=== PATIENT | female | born 1935 | race Caucasian/White ===

== ENCOUNTER 2023-05-07 04:54 | Inpatient (IN) | payer MEDICARE, OTHER, SELFPAY ==
[2023-05-07] VITALS (15 sets, daily range): BP systolic 129–172; BP diastolic 55–82; PULSE 77; O2SAT 97
--- NOTE | 2023-05-07 00:37 | ED.GENMED ---
History of Present Illness
General
Chief Complaint: Fever
Source: patient and ambulance crew
Exam Limitations: none
Time Seen by Provider: 05/07/23 00:35
Nursing documentation reviewed up to this point in time: agreed with
Travel History
Have you had any contact with someone who has COVID-19?: No
Do you have any symptoms of coronavirus? Fever > 100 degrees, chills, cough, shortness of breath, sore throat, loss of taste or smell, muscle aches, or headache?: No
History of Present Illness
History of Present Illness:
Pleasant 87-year-old female presents from [facility] due to a fever of 101. According to daughter Carmela, who is now present at the bedside, she went to visit mom at [facility]. Patient went to bed around 8 PM after taking her evening
medications. Daughter stayed in the room for a while. Patient awakened a short time after going to sleep, patient awakened calling out for her . Daughter went into the room and noticed that patient had a blank stare and was weak. She felt
warm to the touch and temperature was measured at 101.7. Patient complains of a sore throat. Denies any other complaints at this time.
Past History
Past History
ED Past Medical History: CAD, Cancer (Cervical), HTN, Hypercholesterolemia, Valvular disease and Other (R ureteral obstruction, peripheral vascular disease)
ED Past Surgical History: Other (Breast lumpectomy, sentinel in the leg, nephrostomy, cataract surgery)
Patient has exhibited threatening behavior?: No
Social History
Tobacco: Non-smoker
Alcohol: None
Drug: None
Personal:
Living: with family
Employment: Retired
Family History
Family History: Other (Noncontributory)
Review of Systems
Review of Systems
Allergies reviewed?: Yes
Other source history: family
All Other Systems: Not applicable
Neurological: Reports weakness
Psychiatric: Reports anxiety
Phy Exam
General Physical Exam
General Presentation: well appearing and mild distress
General Skin: warm and dry
General Habitus: elderly and frail
General Mental: alert
General Hydration: appears well hydrated
ENT Exam
ENT Exam: EOMI, pharynx normal, neck supple and normocephalic
Eye Exam
Eye Exam: PERRL, cornea clear and conjunctiva normal
Cardiovascular Exam
Cardiovascular Exam: regular rate/rhythm, no edema, no murmur and normal peripheral pulses
Pulmonary Exam
Pulmonary Exam: lungs clear, no respiratory distress, no rales, no crackles, no rhonchi, no stridor, no wheezing and no cough
Gastrointestinal Exam
Gastrointestinal Exam: normal bowel sounds, non tender, soft, no organomegaly, no pulsatile mass and non distended
Neurological Exam
Neurological Exam: alert, oriented x3, no motor deficits and speech normal
Musculoskeletal Exam
Musculoskeletal Exam: full ROM and no edema
Skin Exam
Skin Exam: normal color, warm/dry, no rash and no petechia
Psychiatric Exam
Psychiatric Exam: normal mood/affect
Course
Orders/Labs/Results
Orders:
Orders
05/07/23 00:30
Electrocardiogram (*1) Urgent
Reason for Study: Other
Other Reason for Exam: Possible Sepsis
Cardiac Monitoring- Treatment ONCE
EKG- Treatment ONCE
IV Insert/Care/Rem.- Treatment PRN
O2 Therapy [RESP] Urgent
Titrate/Wean O2 to maintain O2 sat greater than (%): 93
Special Instructions: TO MAINTAIN CONTINUOUS O2 SATS > OR = 93%
Pulse Ox/cont/shift [RESP] Urgent
Quantity: 1
Special Instructions: CONTINUOUS
05/07/23 00:39
COVID-19 Antigen Urgent
Source: Nasal Swab
Complete Blood Count/With Diff Urgent
Comprehensive Metabolic Panel Urgent
Lactic Acid Q4H
Comment: ON ICE, CANCEL 2ND ORDER IF FIRST LACTIC ACID LEVEL <2
Blood Culture Q30M
JACKIE Source: Blood/Venous
Specimen Description:
Comment: FROM 2 SEPARATE SITES
Influenza A+B Rapid Molecular Urgent
JACKIE Source: Nasal Swab
Specimen Description:
Rapid Strep Group A Urgent
JACKIE Source: Throat/Pharynx
Specimen Description:
Date Specimen was Collected: 05/07/23
Time Specimen was Collected: 00:37
Throat Culture [Throat Culture, Comprehensive] Urgent
JACKIE Source: Throat/Pharynx
Specimen Description:
Date Specimen was Collected: 05/07/23
Time Specimen was Collected: 00:37
05/07/23 01:00
Blood Culture Q30M
JACKIE Source: Blood/Venous
Specimen Description:
Comment: FROM 2 SEPARATE SITES
05/07/23 01:54
0.9% Sodium Chloride 1000 ml [Nss] 1,000 ml IV BOLUS
05/07/23 02:53
Osmolality, Random Urine Urgent
Date Specimen was Collected: 05/07/23
Time Specimen was Collected: 02:44
Urinalysis Reflex To Culture Urgent
Date Specimen was Collected: 05/07/23
Time Specimen was Collected: 02:44
Urine Microscopic Reflex Cult Urgent
Urine Sodium Urgent
Date Specimen was Collected: 05/07/23
Time Specimen was Collected: 02:44
Comment: ADD ON
05/07/23 03:19
Add On- LAB Urgent
Tests Added?: Urine Na, Urine Osm
05/07/23 03:21
CXR2 [CR Chest - 2 Views ] Urgent
Comment:
Reason For Exam: Fever
05/07/23 03:59
ECG [Electrocardiogram (*1)] Urgent
Reason for Study: Tachycardia
EKG- Treatment ONCE
05/07/23 04:37
Admit/Transfer Patient As Directed
Co-Sign Provider:
Level of Care: Inpatient admission
Assign to:: Telemetry
Physician / Group: Olayinka
Diagnosis: Altered Mental Status, Fever
Reason for Telemetry: Arrhythmia
Date to Stop Telemetry: 05/10/23
Time to Stop Telemetry: 11:00
Reason for Hospitalization: Altered Mental Status, Fever
Expected length of stay greater than two midnights?: Yes
ELOS- Estimated Length of Stay in days: 3
I certify the patient meets the requirements for IP care: Yes
05/07/23 04:41
Code Status As Directed
Resuscitation Status: Do not resuscitate
Reached after discussion with pt or family/Healthcare POA: Yes
05/07/23 04:44
DNR Bracelet Application ONCE
05/07/23 05:48
Cortisol, Random IN AM
0.9% Sodium Chloride 1000 ml [Nss] 1,000 ml IV 80 mls/hr
Acetaminophen [Tylenol] 650 mg PO Q4HPRN PRN
Albuterol Nebs [Ventolin Nebules] 2.5 mg INH R Q4HPRN PRN
05/07/23 05:48
TSH Reflex To Free T4 Routine
Activity As Directed
Activity Level: Ambulate
With Assistance
Bladder Scan As Directed
Follow Bladder Retention/Intermittent Cath Algorithm?: Yes
PRN if no void in __ hours: 6
Frequency: Per Retention Algorithm
If Bladder Scan Result >: 400
then:: Straight cath
I/O [Intake/ Output] As Directed
Frequency: Per unit guidelines
Neurological Checks As Directed
Frequency: q4h
Orthostatic Vital Signs As Directed
Orthostatic VS Frequency: BID
Pneumatic Compression Sleeves As Directed
Type: Knee high
Straight Cath As Directed
Frequency: Per Retention Algorithm
Additional Instructions: straight cath as needed per acute urinary retention algorithm for 24 hrs
Additional Instructions: for bladder scan greater than 400 mL
Vital Signs As Directed
Frequency: Per unit guidelines
Weight As Directed
Frequency: Daily
Oxygen Therapy [O2 Therapy] [RESP] Routine
Titrate/Wean O2 to maintain O2 sat greater than (%): 94
Rx Incentive Spirometry [RESP] Routine
Frequency: q1h while awake
Ot Eval And Treat Routine
PT Consult [Pt Eval And Treat] Routine
Activity Level: Ambulate
With Assistance
DX Deep Vein Thrombosis Video Routine
05/07/23 Breakfast
Clear Liquid
Basic Metabolic Panel IN AM
Complete Blood Count/No Diff IN AM
CefTRIAXone [Rocephin] 1,000 mg IV Q24H
Doxycycline Hyclate [Vibramycin] 100 mg 0.9% Sodium Chloride 250 ml [Nss] 250 ml IV Q12H
05/07/23 07:00
Levothyroxine [Synthroid] 100 mcg PO DAILY AT 0700
05/07/23 08:00
Atorvastatin [Lipitor] 10 mg PO DAILY
Losartan [Cozaar] 50 mg PO DAILY
Pantoprazole [Protonix] 40 mg PO DAILY
progesterone micronized [Prometrium] 100 mg PO DAILY
05/07/23 13:00
Pramipexole [Mirapex] 0.125 mg PO DAILY@1300
05/07/23 22:00
Sertraline HCl [Zoloft] 25 mg PO HS
05/10/23 11:00
DC Protocol for Telemetry ONCE
05/13/23 08:00
estradiol 1 patch TOPICAL SA
Abnormal Lab Results
05/07/23 05/07/23
00:39 02:53
RBC 3.38 L 10^6/uL
(4.20-5.40)
Hgb 10.2 L g/dL
(12.0-16.0)
Hct 29.1 L %
(37.0-47.0)
Absolute Lymphs (auto) 0.4 L 10^3/uL
(1.2-3.4)
Absolute Monos (auto) 0.7 H 10^3/uL
(0.1-0.6)
Neutrophils % 77.5 H %
(42.2-75.2)
Lymphocytes % 6.0 L %
(20.5-51.1)
Monocytes % 12.1 H %
(1.7-9.3)
Sodium 128 L mmol/L
(135-145)
Chloride 96 L mmol/L
(98-107)
Glucose 101 H mg/dl
(70-99)
Lactic Acid 0.6 L mmol/L
(0.7-2.0)
Total Protein 5.3 L g/dl
(6.3-8.2)
Albumin 3.0 L g/dl
(3.5-5.0)
Urine Ketones Trace A
(Negative)
Leukocyte Esterase Rfl Trace A
(Negative)
Urine Osmolality 209 L mOsm/kg
(300-900)
05/07/23 00:39
05/07/23 00:39
Vital Signs
Initial and Last Documented VS:
Initial Vital Signs
Temp Pulse Resp Pulse Ox
99.1 F 102 19 100
05/07/23 00:32 05/07/23 00:32 05/07/23 00:32 05/07/23 00:32
Last Documented Vital Signs
Temp Pulse Resp BP Pulse Ox
98.1 F 92 16 150/73 96
05/07/23 05:57 05/07/23 05:57 05/07/23 05:57 05/07/23 05:57 05/07/23 06:29
*Critical Care Note
Total Time (30-74mins, 75-104mins- exclusive of procedures): Not Applicable
Update Note
Update Note:
Daughter concerned that mom is too weak. She was unable to ambulate easily to the bathroom she has lives at [facility]. She is a DNR. Daughter is okay with some interventions such as fluids and antibiotics if necessary. Patient does not feel
safe going home. Daughter is concerned that she may fall
ED Attending Note
-
Portions of this chart may have been created with voice recognition software.� Occasional wrong word or��sound alike� substitutions may have occurred due to the inherent limitations of voice recognition software.
Discharge Plan
Departure
Patient Disposition: Admit
Date of Disposition: 05/07/23
Time of Disposition: :57
Admit to: Med/Surg
Presentation/result/management discussed w/ accepting MD/DO: Hospitalist
Discharge Problem:
Acute hyponatremia, Weakness, Ambulatory dysfunction
Interventions
Interventions:
*Risk Screen - Suicide Last Done: 05/07/23 06:05
*General Assessment Last Done: 05/07/23 00:32
*Neglect/Abuse Screening Last Done: 05/07/23 00:32
ED- Fall Risk Assessment Last Done: 05/07/23 00:44
*ED COVID-19 Vaccine History Last Done: 05/07/23 06:05
*Nursing Disposition Last Done: 05/07/23 05:43
ED- Neurological Assessment Last Done: 05/07/23 00:44
ED-Skin Assessment Last Done: 05/07/23 00:44
Discharge Date and Time
Discharge Date/Time: 05/07/23 05:44
[2023-05-07 00:53] LABS: % Basophils 0.8 % (0-2); % Eosinophils 3.1 % (0-6); % Immature Granulocytes 0.5 % (0-0.5); % Monocytes 12.1 % (1.7-9.3); % Neutrophils 77.5 % (42.2-75.2); Absolute Basophils 0.1 10^3/uL (0-0.2); Absolute Eosinophils 0.2 10^3/uL (0-0.7); Absolute Lymphocytes 0.4 10^3/uL (1.2-3.4); Absolute Monocytes 0.7 10^3/uL (0.1-0.6); Absolute Neutrophils 4.8 10^3/uL (1.4-6.5); Hematocrit 29.1 % (37.0-47.0); Hemoglobin 10.2 g/dL (12.0-16.0); Mean Corp Hgb Conc. 35.1 g/dL (33.0-37.0); Mean Corpuscular Hgb 30.2 pg (27.0-31.0); Mean Corpuscular Volume 86.1 fL (81.0-99.0); Mean Platelet Volume 8.3 fL (7.4-10.4); Nucleated Red Blood Cells % 0 %; Platelet Count 195 10^3/uL (130-400); Red Blood Cell Count 3.38 10^6/uL (4.20-5.40); Red Cell Dist. Width 14.5 % (11.5-14.5); White Blood Cell Count 6.1 10^3/uL (4.8-10.8)
[2023-05-07 01:18] LABS: ALT (SGPT) 16 U/L (0-35); AST (SGOT) 19 U/L (14-36); Alkaline Phosphatase 69 U/L (38-126); Blood Urea Nitrogen 9 mg/dl (7-17); Calcium 8.7 mg/dl (8.4-10.2); Carbon Dioxide 25 mmol/L (22-30); Chloride 96 mmol/L (98-107); Glucose 101 mg/dl (70-99); Potassium 3.8 mmol/L (3.5-5.1); Sodium 128 mmol/L (135-145); Total Bilirubin 0.5 mg/dl (0.2-1.3); Total Protein 5.3 g/dl (6.3-8.2); eGFR > 60.00
[2023-05-07 01:25] LABS: COVID-19 Antigen Negative (Negative)
[2023-05-07 01:50] LABS: Lactic Acid 0.6 mmol/L (0.7-2.0)
[2023-05-07] MEDS: NSS 1000 IV ×2 (01:54→08:17)
[2023-05-07 03:14] LABS: Urine Albumin Negative (Neg - Trace); Urine Bilirubin Negative (Negative); Urine Character Clear (Clear); Urine Color Straw; Urine Glucose Negative (Negative); Urine Ketone Trace (Negative); Urine Leukocyte Trace (Negative); Urine Nitrite Negative (Negative); Urine Occult Blood Negative (Negative); Urine Specific Gravity 1.005 (<1.030); Urine Urobilinogen Negative (Neg - 1+)
[2023-05-07 03:36] LABS: Urine Red Blood Cell None Seen /HPF (0-2); Urine White Cell 0-2 /HPF (0-5)
[2023-05-07 03:48] LABS: Urine Sodium 61 mmol/L (30-90)
[2023-05-07 03:51] LABS: Osmolality Urine 209 mOsm/kg (300-900)
--- NOTE | 2023-05-07 04:45 | HPS.HSE ---
Family Physician
-
Family Physician: Jarret Lyles
Chief Complaint
-
Altered Mental Status / Fever
History of Present Illness
Patient is an 87y F with PMH significant for hypertension, mild dementia and RLS who presents to ED for evaluation of altered mental status. History obtained from family at the bedside with minimal input from patient. Daughter at bedside notes
that patient has had a very complicated past few weeks. On 04/05/23, patient suffered a fall with head injury and SDH. She was hospitalized at [facility] in [place]. Her SDH resolved within 2 weeks and no intervention / surgery was necessary.
She moved to [facility] about 2 1/2 weeks ago with her . She has seemed somewhat depressed and has had decreased appetite / PO intake since that time.
Patient has had persistent headaches, nausea, general fatigue and vision changes - attributed to post-concussion syndrome from her fall.
She was placed on Compazine for symptoms control, but developed marked worsening of her chronic restless leg syndrome.
Compazine was discontinued (according to daughter - though it is still present as a standing order on her MAR from [facility]).
Patient was then started on alprazolam 0.25mg QID [id number] - beginning on 05/05/23.
Patient has complained for the past few days of hacking, non-productive cough and sore throat. She has had repeated negative COVID and Flu tests (including here in the ED this evening).
This evening, patient called her family and seemed confused. She seemed restless in bed and yet very weak. She started to slide out of the bed and her daughter went to support her and noted that she was 'burning up'.
Her vitals at that time included at temperature of 101.7 and patient was sent to the ED for further evaluation.
In the ED, patient seems very fatigued. She is sleeping comfortably, but will open her eyes to verbal and noxious stim. She answers questions briefly and will follow commands, but then falls quickly back to sleep.
Medical History
Past Medical History
Past Medical History: Reports Other
Additional Past Medical History:
Metastatic Cervical Cancer - In Remission s/p chemo, XRT and brachytherapy
Hypertension
Hypothyroidism
Chronic Hyponatremia
Anxiety / Depression
Restless Leg Syndrome
ASCVD (Carotid Disease, PAD)
SDH (04/05/2023)
Right Breast Cancer
Past Surgical History: Reports Other
Additional Past Surgical History:
LLE Stent
Right Rotator Cuff Repair
Right Lumpectomy
D&C
Cataracts
R ACW Port
Right PCN
Social History
Tobacco: Former Smoker (Quit many years ago.)
Alcohol: Occasional
Drug: None
Living: Assisted Living
Family History
Family History: Not pertinent
Allergies / Home Medications
Allergies reflects when Allergies were last updated in [facility].
Home Medications with original date entered in [facility]
Allergy/Medication List:
Allergies
Allergy/AdvReac Type Severity Reaction Status Date / Time
acetaminophen [From Percocet] Allergy 'mild Verified 05/07/23 00:31
sensation
of bug
bites'
ciprofloxacin [From Cipro] Allergy malaise; Verified 05/07/23 00:31
tolerates
levaquin
clarithromycin [From Biaxin] Allergy vision loss Verified 05/07/23 00:31
ondansetron [From Zofran] Allergy intense Verified 05/07/23 00:31
restless
leg
syndrome
oxycodone [From Percocet] Allergy 'mild Verified 05/07/23 00:31
sensation
of bug
bites'
sulfamethoxazole Allergy Rash Verified 05/07/23 00:31
[From Bactrim]
trimethoprim [From Bactrim] Allergy Rash Verified 05/07/23 00:31
Home Medications
levothyroxine 100 mcg tablet 100 mcg PO DAILY AT 0700 Thyroid 06/28/19
atorvastatin 10 mg tablet 10 mg PO DAILY High cholesterol 08/04/19
mirabegron 50 mg tablet,extended release 24 hr (Myrbetriq) 50 mg PO HS Urinary Issue 11/09/22
sertraline 25 mg tablet (Zoloft) 25 mg PO HS Depression 11/09/22
estradiol 0.025 mg/24 hr weekly transdermal patch 1 patch topical SA Hormonal Agent 12/15/22
Bifidobacterium infantis 4 mg capsule (Align) 4 mg PO DAILY 05/07/23
acetaminophen 325 mg capsule (Tylenol) 650 mg PO QID PRN pain 05/07/23
alpha lipoic acid 600 mg tablet 600 mg PO DAILY 05/07/23
alprazolam 0.25 mg tablet (Xanax) 0.25 mg PO QID 05/07/23
cetirizine 10 mg tablet (Zyrtec) 10 mg PO DAILY PRN seasonal allergies 05/07/23
cranberry extract 200 mg capsule (Ellura) 200 mg PO DAILY 05/07/23
cyanocobalamin (vitamin B-12) 2,500 mcg sublingual tablet (Vitamin B-12) 2,500 mcg sublingual DAILY 05/07/23
fluticasone propionate 50 mcg/actuation nasal spray,suspension 1 spray intranasal BID PRN rhinorrhea 05/07/23
fluticasone propionate 50 mcg/actuation nasal spray,suspension 1 spray intranasal DAILY 05/07/23
guaifenesin 600 mg tablet, extended release 12 hr (Mucinex) 600 mg PO Q12H PRN congestion 05/07/23
hyoscyamine sulfate 0.125 mg sublingual tablet (Levsin/SL) 0.25 mg PO QID PRN secretions 05/07/23
losartan 50 mg tablet 50 mg PO DAILY 05/07/23
melatonin 3 mg capsule 3 mg PO HS 05/07/23
methylcellulose (laxative) 500 mg tablet (Citrucel) 500 mg PO BID 05/07/23
nifedipine 60 mg tablet,extended release 24 hr 60 mg PO DAILY 05/07/23
nitrofurantoin macrocrystal 50 mg capsule (Macrodantin) 50 mg PO HS 05/07/23
oxymetazoline 0.05 % nasal spray (Afrin (oxymetazoline)) 1 spray intranasal ONCE 05/07/23
pantoprazole 40 mg tablet,delayed release (Protonix) 40 mg PO DAILY 05/07/23
peg 400-propylene glycol 0.4 %-0.3 % eye drops (Systane (propylene glycol)) 1 drp ophthalmic (eye) TID PRN dry eyes 05/07/23
phosphorated carbohydrate oral solution (Emetrol oral solution) 15 ml PO PRN nausea 05/07/23
pramipexole 0.125 mg tablet 0.125 mg PO BID@1300,1800 05/07/23
progesterone micronized 100 mg capsule (Prometrium) 100 mg PO DAILY 05/07/23
riboflavin (vitamin B2) 100 mg tablet (Vitamin B-2) 100 mg PO DAILY 05/07/23
simethicone 125 mg capsule 125 mg PO BID PRN gas pains 05/07/23
Review of Systems
-
History Source: Patient
A 12 point ROS was completed and negative except as noted: Yes
Constitutional: Reports Fatigue; Denies Fever
EENT: Reports Sore Throat
Respiratory: Reports Cough; Denies Hemoptysis or Trouble Breathing
Cardiac: Denies Chest Pain or Palpitations
Abdomen/GI: Reports Nausea and Anorexia; Denies Abdominal Pain, Vomiting or Diarrhea
: Denies Dysuria, Frequency or Flank Pain
Musculoskeletal: Denies Joint Pain or Edema
Neurological: Reports Weakness; Denies Dizzy or Headache
Physical Exam
Vital Signs
Vital Signs
Temp Pulse Resp BP Pulse Ox
99.1 F 99 23 141/61 94
05/07/23 00:32 05/07/23 03:45 05/07/23 03:45 05/07/23 03:00 05/07/23 03:41
Physical Exam
General: Other (87y F in no acute distress. Responds to verbal and noxious stimuli, but falls quickly back to sleep.)
HEENT: Other (Very dry MM. No significant erythema, purulence, white coating, etc.)
Respiratory: Other (Few coarse breath sounds appreciated on the R. Generally poor inspiratory effort. No rales / wheezes.)
Cardiac: S1/S2 and Regular Rhythm; No Murmur
GI: Soft, Non Tender, Non Distended and Normal Bowel Sounds
Musculoskeletal: No Clubbing, No Cyanosis and No Edema
Laboratory Results
-
05/07/23 00:39
05/07/23 00:39
Laboratory Results
Lactic Acid 0.6 mmol/L (0.7-2.0) L 05/07/23:39
Total Bilirubin 0.5 mg/dl (0.2-1.3) 05/07/23 00:39
AST 19 U/L (14-36) 05/07/23:39
ALT 16 U/L (0-35) 05/07/23 00:39
Alkaline Phosphatase 69 U/L (38-126) 05/07/23 00:39
Impression/Plan
-
A/P: Patient is an 87y F with PMH significant for ASCVD, HTN, anxiety and recent SDH who presents to ED for evaluation of altered mental status, fever and sore throat.
Altered Mental Status
- Admit for further evaluation and treatment.
- Suspect that change in mentation is multifactorial, but likely in large part due to recently started ATC alprazolam.
- Hold sedating medications and follow for improvement in mental status.
- Treat other concurrent issues as noted below.
R Pneumonia
Acute Hypoxemic Respiratory Insufficiency secondary to the above.
- Patient with recent sore throat, cough and fever at home today to 101.7.
- CXR with patchy increased density on the R to my read.
- O2 levels in the ED as low as 92%.
- Cover with IV abx for CAP for now.
- Supportive care including O2, nebs, etc.
- Follow for clinical improvement.
- COVID / Influenza negative in the ED today.
Acute on Chronic Hyponatremia
- Very minimal progression of hyponatremia from baseline around 130 to current value of 128.
- Poor PO intake, very dry MM and weight loss per family.
- Gentle IVFs overnight.
- Follow for changes in Na levels.
- Encourage PO intake and adjust fluid restrictions / IVFs / etc as needed to maintain Na level.
- Check TFTs and cortisol for completeness.
Recent SDH
Post-Concussion Syndrome
- Fall on 04/05/23 with resultant L frontal SDH - improved / resolved without intervention.
- Family reports significant change in mentation, functional status, mood, etc since that fall.
- Follow for any new / worsening symptom.
- Consider repeat CT if any acute changes.
- PT / OT evaluations.
Restless Leg Syndrome
Akathisia
- Recent worsening of RLS symptoms following Compazine administration.
- Then started on standing doses of alprazolam as noted above.
- Hold further Compazine or alprazolam.
- Continue usual pramipexole for RLS symptoms.
- Follow for any new / worsening symptoms.
ASCVD
- History of carotid disease and PAD s/p stenting.
- No chest pain, etc at present.
- Follow for any new complaints.
Hypothyroidism
- Stable. Continue T4 supplementation.
- Update TFTs as noted above.
Metastatic Cervical Cancer
- s/p chemo, XRT and brachytherapy.
- Continue current hormonal medication regimen.
DVT Prophylaxis: SCDs given recent SDH
Code Status: DNR
[2023-05-07] MEDS: VIBRAMYCIN 260 MG IV (08:20)
--- NOTE | 2023-05-07 08:21 | VATNOTE ---
Attempted to draw blood from port, unable to achieve blood return. Patient repositioned and port flushed multiple times, still unable to withdraw blood. Phlebotomy notified about need to draw AM labs. Will discuss possible CathFlo with attending MD.
[2023-05-07] MEDS: STERILE WATER FOR INJECTION 10 ML IV (08:23)
[2023-05-07] MEDS: ROCEPHIN 1000 MG IV (08:24)
[2023-05-07] MEDS: SYNTHROID 100 MCG PO (08:25)
[2023-05-07] MEDS: LIPITOR 10 MG PO (08:25)
[2023-05-07] MEDS: PROTONIX 40 MG PO (08:25)
[2023-05-07] MEDS: COZAAR 50 MG PO (08:26)
[2023-05-07 09:05] LABS: Hematocrit 30.3 % (37.0-47.0); Hemoglobin 10.5 g/dL (12.0-16.0); Mean Corp Hgb Conc. 34.7 g/dL (33.0-37.0); Mean Corpuscular Hgb 29.9 pg (27.0-31.0); Mean Corpuscular Volume 86.3 fL (81.0-99.0); Mean Platelet Volume 8.3 fL (7.4-10.4); Platelet Count 215 10^3/uL (130-400); Red Blood Cell Count 3.51 10^6/uL (4.20-5.40); Red Cell Dist. Width 14.6 % (11.5-14.5); White Blood Cell Count 5.6 10^3/uL (4.8-10.8)
[2023-05-07 09:26] LABS: Blood Urea Nitrogen 6 mg/dl (7-17); Calcium 8.4 mg/dl (8.4-10.2); Carbon Dioxide 25 mmol/L (22-30); Chloride 101 mmol/L (98-107); Estimated Creatinine Clearance 57 ml/min; Glucose 89 mg/dl (70-99); Potassium 3.9 mmol/L (3.5-5.1); Sodium 129 mmol/L (135-145); eGFR > 60.00
--- NOTE | 2023-05-07 09:46 | W.PN.UPDATE ---
Update Note
Progress Note Update
Seen and examined
Nonbillable note
Fever episode -monitor for developing sepsis. Patient currently on Rocephin and doxycycline for suspected pneumonia, official chest x-ray read negative for infection. Rule out bacteremia -of note blood culture every 30 minutes x2 ordered in ER
although only 1 set was collected and patient already got on antibiotics at this point. Repeat blood culture if spikes fever.
Recent fall and left subdural hematoma -patient very pleasant and coherent, no indication of repeat brain imaging today.
Sore throat -COVID/flu/rapid strep test negative. Throat culture pending. Already on Rocephin and doxycycline. Cepacol lozenges ordered
[2023-05-07] MEDS: CATHFLO/ACTIVASE 2 MG IV (09:55)
[2023-05-07 10:13] LABS: Cortisol, Random 9.7 ug/dl; TSH Reflex To Free T4 0.31 uIU/ml (0.47-4.68)
[2023-05-07 10:42] LABS: Free T4 2.41 ng/dl (0.78-2.19)
--- NOTE | 2023-05-07 11:02 | VATNOTE ---
CathFlo given per protocol/order. Port with brisk blood return at this time. PCN updated.
[2023-05-07] MEDS: MIRAPEX 0.125 MG PO (14:04)
--- NOTE | 2023-05-07 14:24 | CM ---
Patient seen at bedside. Patient recently moved to [facility] assisted living with her per chart review. Patient confirmed that but did not remember if she had any VN or supports at [facility]. Patient indicated that they used the [facility] on
[facility] and that her PCP is Dr. Lyles. Patient has a walker and wheelchair. Patient pleasant and with no complaints at this time. CM will call to [facility] and leave a message for Melinda Liaison at [facility] to ask for update
about patient status at facility. CM will continue to follow for discharge planning needs.
Plan; return to personal care, watch for home VN/PT needs vs SNF
[2023-05-07] MEDS: TYLENOL 650 MG PO ×2 (16:53→20:53)
[2023-05-07] MEDS: PROCARDIA XL (EXTENDED RELEASE) 60 MG PO (16:53)
[2023-05-07] MEDS: APRESOLINE 10 MG IV (16:54)
--- NOTE | 2023-05-07 18:36 | PTCARENOTE ---
Spoke with daughter Carmela to update her on plan of care. Daughter emotional about Pt being in the hospital and stating ' I can't care for her the way I could before'. Daughter informed that Pharmacy inquiring about family bringing in Prometrium and
Estradiol, daughter stated she would not be bringing them in and that Pt can resume them once returning back to [facility]. Pharmacy updated about meds.
[2023-05-07] MEDS: VIBRAMYCIN 100 MG PO (20:33)
[2023-05-07] MEDS: MELATONIN 3 MG PO (21:20)
[2023-05-07] MEDS: ZOLOFT 25 MG PO (22:50)
[2023-05-08] MEDS: NSS 1000 IV ×2 (01:40→14:31)
[2023-05-08 03:50] VITALS: BP 139/63
[2023-05-08] MEDS: STERILE WATER FOR INJECTION 10 ML IV (05:35)
[2023-05-08] MEDS: ROCEPHIN 1000 MG IV (05:35)
[2023-05-08 05:42] LABS: Hematocrit 34.9 % (37.0-47.0); Hemoglobin 11.7 g/dL (12.0-16.0); Mean Corp Hgb Conc. 33.5 g/dL (33.0-37.0); Mean Corpuscular Hgb 29.9 pg (27.0-31.0); Mean Corpuscular Volume 89.3 fL (81.0-99.0); Mean Platelet Volume 8.4 fL (7.4-10.4); Platelet Count 258 10^3/uL (130-400); Red Blood Cell Count 3.91 10^6/uL (4.20-5.40); Red Cell Dist. Width 14.5 % (11.5-14.5); White Blood Cell Count 5.2 10^3/uL (4.8-10.8)
[2023-05-08 05:44] VITALS: BMI 19.3
[2023-05-08 06:09] LABS: Blood Urea Nitrogen 5 mg/dl (7-17); Calcium 9.1 mg/dl (8.4-10.2); Carbon Dioxide 25 mmol/L (22-30); Chloride 101 mmol/L (98-107); Estimated Creatinine Clearance 55 ml/min; Glucose 92 mg/dl (70-99); Potassium 3.9 mmol/L (3.5-5.1); Sodium 133 mmol/L (135-145); eGFR > 60.00
[2023-05-08] MEDS: SYNTHROID 100 MCG PO (06:24)
[2023-05-08 07:30] VITALS: BP 142/78
[2023-05-08] MEDS: VIBRAMYCIN 100 MG PO (08:31)
[2023-05-08] MEDS: PROTONIX 40 MG PO (08:31)
[2023-05-08] MEDS: COZAAR 50 MG PO (08:32)
[2023-05-08] MEDS: LIPITOR 10 MG PO (08:32)
--- NOTE | 2023-05-08 10:49 | W.PN.HOSP.TC ---
Today's Communication/Plan
-
Monitor vital signs and see plan
Updated daughter over the phone
Discharge planning
Discontinue antibiotics
Check C. difficile, stool studies
Decrease Synthroid
Assessment / Plan
Assessment / Plan
General: Other (87y F in no acute distress.� Responds to verbal and noxious stimuli, but falls quickly back to sleep.)
HEENT: Other (Very dry MM.� No significant erythema, purulence, white coating, etc.)
Respiratory: Other (Few coarse breath sounds appreciated on the R.� Generally poor inspiratory effort.� No rales / wheezes.)
Cardiac: S1/S2 and Regular Rhythm; No Murmur
GI: Soft, Non Tender, Non Distended and Normal Bowel Sounds
Musculoskeletal: No Clubbing, No Cyanosis and No Edema
Altered Mental Status
�- Suspect that change in mentation is multifactorial, but likely in large part due to recently started ATC alprazolam.
�- Hold sedating medications and follow for improvement in mental status.
�- Treat other concurrent issues as noted below.
R Pneumonia
Acute Hypoxemic Respiratory Insufficiency on admission; no clear cause; now appears on RA
�- Patient with recent sore throat, cough and fever at home today to 101.7. her has been normal temp
CXR does not appear PNA
�- DC abx and monitor
bcx NGTD
�- Supportive care including O2, nebs, etc.
�- COVID / Influenza negative
Acute on Chronic Hyponatremia
�- Very minimal progression of hyponatremia from baseline around 130
�- Poor PO intake, very dry MM and weight loss per family.
�- Gentle IVFs
�- Follow for changes in Na levels.
�- Encourage PO intake and adjust fluid restrictions / IVFs / etc as needed to maintain Na level.
Recent SDH
Post-Concussion Syndrome
�- Fall on 04/05/23 with resultant L frontal SDH - improved / resolved without intervention.
�- Family reports significant change in mentation, functional status, mood, etc since that fall.
�- Follow for any new / worsening symptom.
�- Consider repeat CT if any acute changes.
�- PT / OT evaluations.
Restless Leg Syndrome
Akathisia
�- Recent worsening of RLS symptoms following Compazine administration.
�- Then started on standing doses of alprazolam as noted above.
�- Hold further Compazine or alprazolam.
�- Continue usual pramipexole for RLS symptoms.
�- Follow for any new / worsening symptoms.
Suspected depressive mood
no SI
psych eval outpatient
ASCVD
�- History of carotid disease and PAD s/p stenting.
�- No chest pain, etc at present.
�- Follow for any new complaints.
Hypothyroidism
�- Continue T4 supplementation.
�- dec syntrhoid to 88mcg; repeat levels in 4 weeks outpatient
Metastatic Cervical Cancer
�- s/p chemo, XRT and brachytherapy.
�- Continue current hormonal medication regimen.
DVT Prophylaxis:� SCDs given recent SDH
Code Status:� DNR
Anticipated Discharge: Within 24 hours
Subjective/Interval History
-
Date of Service: May 08, 2023
denies pain
Objective Data
-
Labs:
Laboratory Results
05/08/23
05:36
WBC 5.2
Hgb 11.7 L
Hct 34.9 L
Plt Count 258
Sodium 133 L
Potassium 3.9
Chloride 101
Carbon Dioxide 25
BUN 5 L
Creatinine 0.5 L
Glucose 92
Calcium 9.1
Vital Signs:
Vital Signs
Temp Pulse Resp BP Pulse Ox
98.3 F 87 16 142/78 95
05/08/23 07:30 05/08/23 07:30 05/08/23 07:30 05/08/23 07:30 05/08/23 07:30
I&O
05/07/23 05/08/23 05/09/23
06:59 06:59 06:59
Intake Total 600 / 840 240 / 240
Balance 600 / 840 240 / 240
[2023-05-08] MEDS: TYLENOL 650 MG PO ×2 (10:57→22:18)
--- NOTE | 2023-05-08 11:37 | CM ---
Addendum entered by SILVANA Hampton 05/08/23 13:46:
Received return call from patient's daughter who stated that her preference is for patient to return to her [facility] with her spouse if at all possible as she does better living with her spouse and she has been doing well.
Reviewed indication on behalf of PT is rehab, however patient's daughter stated that as patient is not feeling very well, she is probably doing worse than she will once she starts getting better.
CM stated that PT/OT can be reviewed again and final determinations won't be made until prior to discharge. If indication is still for SNF tomorrow, will get referrals from patient's .
Original Note:
Spoke with attending who stated that patient's daughter wanted to discuss discharge planning. Placed a call to patient's daughter who answered but stated that she was at an appointment. She was agreeable to a call in an hour. Will f/u.
Plan: Case management will continue to follow and assist with discharge planning. Most likely SNF.
[2023-05-08 11:45] VITALS: BP 146/73
[2023-05-08] MEDS: MIRAPEX 0.125 MG PO (12:15)
[2023-05-08 15:00] VITALS: BP 159/65
[2023-05-08] MEDS: PROCARDIA XL (EXTENDED RELEASE) 60 MG PO (17:29)
[2023-05-08 19:00] VITALS: BP 147/63
[2023-05-08] MEDS: ZOLOFT 25 MG PO (22:18)
[2023-05-08 23:00] VITALS: BP 149/77
[2023-05-09] VITALS (8 sets, daily range): BP systolic 130–173; BP diastolic 65–97; BMI 19.1
[2023-05-09] MEDS: TYLENOL 650 MG PO ×3 (02:23→21:38)
[2023-05-09] MEDS: SYNTHROID 88 MCG PO (06:22)
[2023-05-09] MEDS: COZAAR 50 MG PO (07:43)
[2023-05-09] MEDS: PROTONIX 40 MG PO (07:43)
[2023-05-09] MEDS: LIPITOR 10 MG PO (07:43)
[2023-05-09 08:34] LABS: % Basophils 0.6 % (0-2); % Eosinophils 3.2 % (0-6); % Immature Granulocytes 0.6 % (0-0.5); % Lymphocytes 6.7 % (20.5-51.1); % Monocytes 9.3 % (1.7-9.3); % Neutrophils 79.6 % (42.2-75.2); Absolute Eosinophils 0.2 10^3/uL (0-0.7); Absolute Lymphocytes 0.4 10^3/uL (1.2-3.4); Absolute Monocytes 0.5 10^3/uL (0.1-0.6); Absolute Neutrophils 4.3 10^3/uL (1.4-6.5); Hematocrit 33.9 % (37.0-47.0); Hemoglobin 11.5 g/dL (12.0-16.0); Mean Corp Hgb Conc. 33.9 g/dL (33.0-37.0); Mean Corpuscular Hgb 29.8 pg (27.0-31.0); Mean Corpuscular Volume 87.8 fL (81.0-99.0); Mean Platelet Volume 8.4 fL (7.4-10.4); Nucleated Red Blood Cells % 0 %; Platelet Count 237 10^3/uL (130-400); Red Blood Cell Count 3.86 10^6/uL (4.20-5.40); Red Cell Dist. Width 14.5 % (11.5-14.5); White Blood Cell Count 5.4 10^3/uL (4.8-10.8)
[2023-05-09 09:38] LABS: Blood Urea Nitrogen 5 mg/dl (7-17); Calcium 8.7 mg/dl (8.4-10.2); Carbon Dioxide 23 mmol/L (22-30); Chloride 100 mmol/L (98-107); Estimated Creatinine Clearance 55 ml/min; Glucose 87 mg/dl (70-99); Potassium 3.3 mmol/L (3.5-5.1); Sodium 129 mmol/L (135-145); eGFR > 60.00
--- NOTE | 2023-05-09 10:19 | CM ---
Received another call form patient's daughter, reiterating that she would rather, if possible, have patient return back to her apartment. She was advised that CM will need to review her current functional status with [facility] to confirm that
they can accept her.
Plan: Case management will continue to follow and assist with discharge planning. Patient's daughter hopeful that patient can just return right back to [facility] with her spouse.
--- NOTE | 2023-05-09 11:00 | W.PN.HOSP.TC ---
Addendum entered and electronically signed by Shyam Bullock MD 05/10/23 12:05:
underweight
Suspect toxic metabolic encephalopathy which is now improved
Original Note:
Today's Communication/Plan
-
Monitor vital signs and see plan
Spoke with daughter 05/08. Patient is currently at assisted living. Daughter wants to see how patient does today and depending on that she will decide on disposition
Replete potassium
Monitor sodium
Assessment / Plan
Assessment / Plan
General: Other (87y F in no acute distress.)
HEENT: no icterus
Respiratory: Other (Few coarse breath sounds appreciated on the R.� Generally poor inspiratory effort.� No rales / wheezes.)
Cardiac: S1/S2 and Regular Rhythm; No Murmur
GI: Soft, Non Tender, Non Distended and Normal Bowel Sounds
Musculoskeletal: No Clubbing, No Cyanosis and No Edema
Altered Mental Status
now improving
�- Suspect that change in mentation is multifactorial, but likely in large part due to recently started ATC alprazolam.
�- Hold sedating medications and follow for improvement in mental status.
�- Treat other concurrent issues as noted below.
R Pneumonia
Acute Hypoxemic Respiratory Insufficiency on admission; no clear cause; now appears on RA
�- Patient with recent sore throat, cough and fever at home today to 101.7. her has been normal temp
CXR does not appear PNA
�- DC abx and monitor
bcx NGTD
�- Supportive care including O2, nebs, etc.
�- COVID / Influenza negative
Acute diarrhea likely related to abx
cdiff neg; no WBC in stool
hypokalemia
Replete
Acute on Chronic Hyponatremia
�- Very minimal progression of hyponatremia from baseline around 130
�- Poor PO intake, very dry MM and weight loss per family.
Recent SDH
Post-Concussion Syndrome
�- Fall on 04/05/23 with resultant L frontal SDH - improved / resolved without intervention.
�- Family reports significant change in mentation, functional status, mood, etc since that fall.
�- Follow for any new / worsening symptom.
�- Consider repeat CT if any acute changes.
�- PT / OT evaluations rec SNF. Spoke with daughter 05/08. Patient is currently at assisted living. Daughter wants to see how patient does today and depending on that she will decide on disposition
Restless Leg Syndrome
Akathisia
�- Recent worsening of RLS symptoms following Compazine administration.
�- Then started on standing doses of alprazolam as noted above.
�- Hold further Compazine or alprazolam.
�- Continue usual pramipexole for RLS symptoms.
�- Follow for any new / worsening symptoms.
Suspected depressive mood
no SI
psych eval outpatient
ASCVD
�- History of carotid disease and PAD s/p stenting.
�- No chest pain, etc at present.
�- Follow for any new complaints.
Hypothyroidism
�- Continue T4 supplementation.
�- dec Synthroid to 88mcg; repeat levels in 4 weeks outpatient
Metastatic Cervical Cancer
�- s/p chemo, XRT and brachytherapy.
�- Continue current hormonal medication regimen.
DVT Prophylaxis:� SCDs given recent SDH
Code Status:� DNR
Spoke with daughter 2/. Patient is currently at assisted living. Daughter wants to see how patient does today and depending on that she will decide on disposition
Anticipated Discharge: Today
Subjective/Interval History
-
Date of Service: May 09, 2023
denies pain
Objective Data
-
Labs:
Laboratory Results
05/09/23
08:15
WBC 5.4
Hgb 11.5 L
Hct 33.9 L
Plt Count 237
Sodium 129 L
Potassium 3.3 L
Chloride 100
Carbon Dioxide 23
BUN 5 L
Creatinine 0.6
Glucose 87
Calcium 8.7
Vital Signs:
Vital Signs
Temp Pulse Resp BP Pulse Ox
99.1 F 100 17 146/97 97
05/09/23 07:00 05/09/23 07:43 05/09/23 07:00 05/09/23 07:43 05/09/23 07:00
I&O
05/08/23 05/09/23 05/10/23
06:59 06:59 06:59
Intake Total 600 / 840 1660 / 1660
Balance 600 / 840 1660 / 1660
[2023-05-09] MEDS: KLOR-CON 20 MEQ PO (11:54)
[2023-05-09] MEDS: MIRAPEX 0.125 MG PO (12:55)
--- NOTE | 2023-05-09 14:38 | PN.CDI ---
CDI
- -
CDI:
Physician Documentation Request
Admit Date: 05/07/23 04:54
Dear Doctor Kobe,
Patient admitted with pneumonia.
05/09 PN, 'Altered Mental Status...now improving...Suspect that change in mentation is multifactorial, but likely in large part due to recently started ATC alprazolam.....hyponatremia.'
Based on the above, could you please clarify in the Progress Notes and Discharge Summary which, if any of the following, is the most likely diagnosis for the altered mental status.
Toxic metabolic encephalopathy
Metabolic encephalopathy
Other
Use of terms such as suspected, likely, concern for, or probable (associated with a specific diagnosis that is being evaluated, monitored, or treated as if it exists) are acceptable and can be coded in the inpatient setting, when documented at the
time of discharge.
Thank you,
Tawana GILL,RN,CCDS
CDI Specialist
Available via [facility] text
Please use your independent medical judgment in providing your response.
--- NOTE | 2023-05-09 14:50 | PN.CDI ---
CDI
- -
CDI:
Physician Documentation Request
Admit Date: 05/07/23 04:54
Dear Doctor Kobe,
Patient admitted with pneumonia.
Please review the following and provide your response in the progress notes.
Clinical Indicators:
Height: 5' 6'
Weight: 118 lb 2 oz
BMI: 19.1
Please provide an associated diagnosis related to the abnormal BMI, such as:
Underweight
Cachexia
Anorexia
BMI is not significant
Other
Underweight
Weight Loss
Cachectic
Anorexia
Use of terms such as suspected, likely, concern for, or probable (associated with a specific diagnosis that is being evaluated, monitored, or treated as if it exists) are acceptable and can be coded in the inpatient setting, when documented at the
time of discharge.
Thank you,
Tawana GILL,RN,CCDS
CDI Specialist
Available via [place] text
Please use your independent medical judgment in providing your response.
[2023-05-09] MEDS: APRESOLINE 10 MG IV (15:44)
--- NOTE | 2023-05-09 16:12 | CM ---
Spoke with patient's daughter again to discuss that CM reviewed chart and spoke with PT and patient will most likely need SNF. Met with patient to discuss and she was agreeable. Per daughter she wanted: [place], [place] and [facility] faxed referrals through
allscripts.
Plan: Case management will continue to follow and assist with discharge planning. SNF upon medical clearance.
[2023-05-09] MEDS: MAALOX 30 ML PO (16:18)
[2023-05-09] MEDS: PROCARDIA XL (EXTENDED RELEASE) 60 MG PO (17:54)
[2023-05-09] MEDS: ZOLOFT 25 MG PO (21:32)
[2023-05-10] VITALS (8 sets, daily range): BP systolic 139–191; BP diastolic 58–90; BMI 18.8
[2023-05-10] MEDS: TYLENOL 650 MG PO ×3 (04:35→14:46)
[2023-05-10] MEDS: SYNTHROID 88 MCG PO (06:16)
[2023-05-10 06:39] LABS: % Basophils 0.6 % (0-2); % Eosinophils 3.1 % (0-6); % Immature Granulocytes 0.6 % (0-0.5); % Lymphocytes 5.5 % (20.5-51.1); % Neutrophils 79.2 % (42.2-75.2); Absolute Eosinophils 0.2 10^3/uL (0-0.7); Absolute Lymphocytes 0.3 10^3/uL (1.2-3.4); Absolute Monocytes 0.6 10^3/uL (0.1-0.6); Hematocrit 35.3 % (37.0-47.0); Hemoglobin 11.9 g/dL (12.0-16.0); Mean Corp Hgb Conc. 33.7 g/dL (33.0-37.0); Mean Corpuscular Hgb 29.7 pg (27.0-31.0); Mean Platelet Volume 8.4 fL (7.4-10.4); Nucleated Red Blood Cells % 0 %; Platelet Count 230 10^3/uL (130-400); Red Blood Cell Count 4.01 10^6/uL (4.20-5.40); Red Cell Dist. Width 14.5 % (11.5-14.5); White Blood Cell Count 5.1 10^3/uL (4.8-10.8)
[2023-05-10 07:28] LABS: Blood Urea Nitrogen 8 mg/dl (7-17); Carbon Dioxide 22 mmol/L (22-30); Chloride 96 mmol/L (98-107); Estimated Creatinine Clearance 54 ml/min; Glucose 83 mg/dl (70-99); Potassium 3.7 mmol/L (3.5-5.1); Sodium 128 mmol/L (135-145); eGFR > 60.00
[2023-05-10] MEDS: LIPITOR 10 MG PO (07:38)
[2023-05-10] MEDS: COZAAR 50 MG PO (07:38)
[2023-05-10] MEDS: PROTONIX 40 MG PO (07:38)
[2023-05-10] MEDS: NSS 1000 IV (09:27)
[2023-05-10] MEDS: APRESOLINE 10 MG IV (09:28)
[2023-05-10 09:48] LABS: Osmolality Serum 265 mOsm/kg (275-300)
[2023-05-10 10:42] LABS: Osmolality Urine 510 mOsm/kg (300-900)
--- NOTE | 2023-05-10 10:59 | CM ---
Addendum entered by SILVANA Hampton 05/10/23 13:47:
Received confirmation from [facility], and [facility] that they can take patient. Will update patient's daughter.
Addendum entered by SILVANA Hampton 05/10/23 11:27:
Received call from patient's daughter and she was provided with update.
Original Note:
Received voice mail from patient's daughter who stated that in addition to [facility], She would like the following referrals sent: [facility], [facility], and [facility]. Additional referrals sent to facilities. Will await determinations.
Plan: Case management will continue to follow and assist with discharge planning. Will await determinations. [facility] has rendered acceptance, will await the rest of the facilities to provide response.
[2023-05-10 11:01] LABS: Urine Sodium 187 mmol/L (30-90)
--- NOTE | 2023-05-10 11:48 | W.PN.HOSP.TC ---
Today's Communication/Plan
-
Monitor vital signs and see plan
Fluid restriction
monitor sodium
Updated daughter over the phone
Discharge plan
Assessment / Plan
Assessment / Plan
General: Other (87y F in no acute distress.)
HEENT: no icterus
Respiratory: Other (Few coarse breath sounds appreciated on the R.� Generally poor inspiratory effort.� No rales / wheezes.)
Cardiac: S1/S2 and Regular Rhythm; No Murmur
GI: Soft, Non Tender, Non Distended and Normal Bowel Sounds
Musculoskeletal: No Clubbing, No Cyanosis and No Edema
Altered Mental Status
now improving
�- Suspect that change in mentation is multifactorial, but likely in large part due to recently started ATC alprazolam.
�- Hold sedating medications and follow for improvement in mental status.
�- Treat other concurrent issues as noted below.
R Pneumonia
Acute Hypoxemic Respiratory Insufficiency on admission; no clear cause; now appears on RA
�- Patient with recent sore throat, cough and fever at home today to 101.7. her has been normal temp
CXR does not appear PNA
�- DC abx and monitor
bcx NGTD
�- Supportive care including O2, nebs, etc.
�- COVID / Influenza negative
Acute diarrhea likely related to abx
cdiff neg; no WBC in stool
hypokalemia
Replete
Acute on Chronic Hyponatremia
�- Persistent hyponatremia
Fluid restriction
If does not improve then will need nephrology evaluation
Recent SDH
Post-Concussion Syndrome
�- Fall on 04/05/23 with resultant L frontal SDH - improved / resolved without intervention.
�- Family reports significant change in mentation, functional status, mood, etc since that fall.
�- Follow for any new / worsening symptom.
�- Consider repeat CT if any acute changes.
�- PT / OT evaluations rec SNF. Spoke with daughter 05/08. Patient is currently at assisted living. Daughter wants to see how patient does today and depending on that she will decide on disposition
Restless Leg Syndrome
Akathisia
�- Recent worsening of RLS symptoms following Compazine administration.
�- Then started on standing doses of alprazolam as noted above.
�- Hold further Compazine or alprazolam.
�- Continue usual pramipexole for RLS symptoms.
�- Follow for any new / worsening symptoms.
Suspected depressive mood
no SI
psych eval outpatient
ASCVD
�- History of carotid disease and PAD s/p stenting.
�- No chest pain, etc at present.
�- Follow for any new complaints.
Hypothyroidism
�- Continue T4 supplementation.
�- dec Synthroid to 88mcg; repeat levels in 4 weeks outpatient
Metastatic Cervical Cancer
�- s/p chemo, XRT and brachytherapy.
�- Continue current hormonal medication regimen.
DVT Prophylaxis:� SCDs given recent SDH
Code Status:� DNR
Spoke with daughter 05/08. Patient is currently at assisted living. Daughter wants to see how patient does today and depending on that she will decide on disposition
05/10: updated daughter
I spent a total of 52 minutes with the patient or on the floor. More than 50% of this time involved counseling and coordination of care.
Anticipated Discharge: Within 24 hours
Subjective/Interval History
-
Date of Service: May 10, 2023
denies pain
Objective Data
-
Labs:
Laboratory Results
05/10/23
06:22
WBC 5.1
Hgb 11.9 L
Hct 35.3 L
Plt Count 230
Sodium 128 L
Potassium 3.7
Chloride 96 L
Carbon Dioxide 22
BUN 8
Creatinine 0.5 L
Glucose 83
Calcium 9.0
Vital Signs:
Vital Signs
Temp Pulse Resp BP Pulse Ox
98.2 F 87 16 144/67 97
05/10/23 11:44 05/10/23 11:44 05/10/23 11:44 05/10/23 11:44 05/10/23 11:44
I&O
05/09/23 05/10/23 05/11/23
06:59 06:59 06:59
Intake Total 1660 / 1660 780 / 780
Balance 1660 / 1660 780 / 780
[2023-05-10] MEDS: MIRAPEX 0.125 MG PO (13:11)
[2023-05-10] MEDS: MORPHINE SULFATE 1 MG IV (16:57)
[2023-05-10] MEDS: PROCARDIA XL (EXTENDED RELEASE) 60 MG PO (17:00)
[2023-05-10] MEDS: ZOLOFT 25 MG PO (20:53)
[2023-05-11] VITALS (7 sets, daily range): BP systolic 119–171; BP diastolic 61–86; PULSE 82–110; O2SAT 95; BMI 19.1; BMI 19.0
[2023-05-11 06:31] LABS: % Basophils 0.8 % (0-2); % Eosinophils 1.4 % (0-6); % Immature Granulocytes 0.4 % (0-0.5); % Lymphocytes 6.8 % (20.5-51.1); % Monocytes 9.6 % (1.7-9.3); Absolute Eosinophils 0.1 10^3/uL (0-0.7); Absolute Lymphocytes 0.4 10^3/uL (1.2-3.4); Absolute Monocytes 0.5 10^3/uL (0.1-0.6); Absolute Neutrophils 4.1 10^3/uL (1.4-6.5); Hematocrit 34.3 % (37.0-47.0); Hemoglobin 11.8 g/dL (12.0-16.0); Mean Corp Hgb Conc. 34.4 g/dL (33.0-37.0); Mean Corpuscular Hgb 29.6 pg (27.0-31.0); Mean Platelet Volume 8.9 fL (7.4-10.4); Nucleated Red Blood Cells % 0 %; Platelet Count 235 10^3/uL (130-400); Red Blood Cell Count 3.99 10^6/uL (4.20-5.40); Red Cell Dist. Width 14.4 % (11.5-14.5); White Blood Cell Count 5.1 10^3/uL (4.8-10.8)
[2023-05-11 07:22] LABS: Calcium 8.2 mg/dl (8.4-10.2); Carbon Dioxide 24 mmol/L (22-30); Estimated Creatinine Clearance 55 ml/min; Glucose 82 mg/dl (70-99); Potassium 3.6 mmol/L (3.5-5.1); Sodium 125 mmol/L (135-145); eGFR > 60.00
[2023-05-11 07:28] LABS: Blood Urea Nitrogen 8 mg/dl (7-17); Chloride 97 mmol/L (98-107)
[2023-05-11] MEDS: COZAAR 50 MG PO (07:52)
[2023-05-11] MEDS: PROTONIX 40 MG PO (07:52)
[2023-05-11] MEDS: SYNTHROID 88 MCG PO (07:52)
[2023-05-11] MEDS: LIPITOR 10 MG PO (07:52)
--- NOTE | 2023-05-11 11:25 | W.PN.HOSP.TC ---
Today's Communication/Plan
-
Monitor vital signs see plan
Monitor sodium, consult nephrology
Might need to hold SSRI
Restart Plavix
Daughter updated over the phone
Assessment / Plan
Assessment / Plan
General: Other (87y F in no acute distress.)
HEENT: no icterus
Respiratory: Other (Few coarse breath sounds appreciated on the R.� Generally poor inspiratory effort.� No rales / wheezes.)
Cardiac: S1/S2 and Regular Rhythm; No Murmur
GI: Soft, Non Tender, Non Distended and Normal Bowel Sounds
Musculoskeletal: No Clubbing, No Cyanosis and No Edema
Suspect toxic metabolic encephalopathy which is now improved
�- Suspect that change in mentation is multifactorial, but likely in large part due to recently started ATC alprazolam.
�- Hold sedating medications and follow for improvement in mental status.
�- Treat other concurrent issues as noted below.
R Pneumonia
Acute Hypoxemic Respiratory Insufficiency on admission; no clear cause; now appears on RA
�- Patient with recent sore throat, cough and fever at home today to 101.7. her has been normal temp
CXR does not appear PNA
�- DC abx and monitor
bcx NGTD
�- Supportive care including O2, nebs, etc.
�- COVID / Influenza negative
Acute diarrhea likely related to abx
cdiff neg; no WBC in stool
hypokalemia
Replete
Acute on Chronic Hyponatremia
�- Persistent hyponatremia
Fluid restriction
nephrology consulted
Recent SDH
Post-Concussion Syndrome
�- Fall on 04/05/23 with resultant L frontal SDH - improved / resolved without intervention.
�- Family reports significant change in mentation, functional status, mood, etc since that fall.
�- Follow for any new / worsening symptom.
�- Consider repeat CT if any acute changes.
�- PT / OT evaluations rec SNF. Spoke with daughter 05/08. Patient is currently at assisted living. Daughter wants to see how patient does today and depending on that she will decide on disposition
Restless Leg Syndrome
Akathisia
�- Recent worsening of RLS symptoms following Compazine administration.
�- Then started on standing doses of alprazolam as noted above.
�- Hold further Compazine or alprazolam.
�- Continue usual pramipexole for RLS symptoms.
�- Follow for any new / worsening symptoms.
Suspected depressive mood
no SI
psych eval outpatient
ASCVD
�- History of carotid disease and PAD s/p stenting.
�- No chest pain, etc at present.
�- Follow for any new complaints.
restart plavix when able given recent SDH; daughter supposed to provide us paperwork given by her neurologist. ok'ed by outpatient neurologist to start back plavix.
Hypothyroidism
�- Continue T4 supplementation.
�- dec Synthroid to 88mcg; repeat levels in 4 weeks outpatient
underweight
Metastatic Cervical Cancer
�- s/p chemo, XRT and brachytherapy.
�- Continue current hormonal medication regimen.
DVT Prophylaxis:� SCDs given recent SDH
Code Status:� DNR
Spoke with daughter 05/08. Patient is currently at assisted living. Daughter wants to see how patient does today and depending on that she will decide on disposition
05/10,05/11: updated daughter
I spent a total of 52 minutes with the patient or on the floor. More than 50% of this time involved counseling and coordination of care.
Anticipated Discharge: Within 24 hours
Subjective/Interval History
-
Date of Service: May 11, 2023
denies pain
Objective Data
-
Labs:
Laboratory Results
05/11/23
05:31
WBC 5.1
Hgb 11.8 L
Hct 34.3 L
Plt Count 235
Sodium 125 L
Potassium 3.6
Chloride 97 L
Carbon Dioxide 24
BUN 8
Creatinine 0.5 L
Glucose 82
Calcium 8.2 L
Vital Signs:
Vital Signs
Temp Pulse Resp BP Pulse Ox
98 F 92 16 171/79 97
05/11/23 07:37 05/11/23 07:52 05/11/23 07:37 05/11/23 07:52 05/11/23 07:37
I&O
05/10/23 05/11/23 05/12/23
06:59 06:59 06:59
Intake Total 780 / 780 600 / 600
Balance 780 / 780 600 / 600
--- NOTE | 2023-05-11 11:36 | CM ---
Reviewed chart, reviewed Allscripts. Patient was accepted at [facility] and [facility] in addition to [facility]. Placed a call to patient's daughter to update. She selected [facility] but she was advised that will provide a Medicare [place] list to her. She
was appreciative.
Plan: Case management will continue to follow and assist with discharge planning. [facility] when stable.
[2023-05-11] MEDS: BENADRYL ELIXIR 12.5 MG PO (11:40)
[2023-05-11] MEDS: MIRAPEX 0.125 MG PO (12:02)
[2023-05-11] MEDS: PLAVIX 75 MG PO (12:02)
--- NOTE | 2023-05-11 15:47 | W.CON.NEPH ---
Consultation
-
Date/Time Consultation Requested: 05/11/2023 10:00 AM
Date/Time Consultation Performed: 05/11/2023 3:00 PM
Requesting Provider: Kobe
Performing Provider: Alberta
Reason for Consultation: Hyponatremia
Medical History
-
Chief Complaint: Hyponatremia
History of Present Illness:
Patient is an 87y F with PMH significant for hypertension maintained on losartan and nifedipine, mild dementia and RLS maintained on Myrbetriq, with known history of hyponatremia no longer maintained on a fluid restriction. As per review of her
past labs over the past several years her sodiums oscillate between 128-132. She presentd to ED for evaluation of altered mental status.� On 04/05/23, patient suffered a fall with head injury and SDH.� She was hospitalized at [facility] in
[place].� Her SDH resolved within 2 weeks and no intervention / surgery was necessary.
She moved to [facility] about 2 1/2 weeks ago with her .� She has seemed somewhat depressed and has had decreased appetite / PO intake since that time.
Patient has had persistent headaches, nausea, general fatigue and vision changes - attributed to post-concussion syndrome from her fall.
She was placed on Compazine for symptoms control, but developed marked worsening of her chronic restless leg syndrome.
Compazine was discontinued (according to daughter - though it is still present as a standing order on her MAR from [facility]).
Patient was then started on alprazolam 0.25mg QID [id number] - beginning on 05/05/23.
Patient has complained for the past few days of hacking, non-productive cough and sore throat.� She has had repeated negative COVID and Flu tests (including here in the ED this evening).
This evening, patient called her family and seemed confused.�� The patient was febrile on admission but subsequent workup was negative including a negative chest x-ray. Over the course of her admission her sodium which on presentation was 128 has
now drifted down to 125 and nephrology was asked to see the patient for acute on chronic hyponatremia.
Past Medical History
Metastatic Cervical Cancer - In Remission s/p chemo, XRT and brachytherapy
Hypertension
Hypothyroidism
Chronic Hyponatremia
Anxiety / Depression: on SSRI
Restless Leg Syndrome
ASCVD (Carotid Disease, PAD)
SDH (04/05/2023)
Right Breast Cancer
LLE Stent
Right Rotator Cuff Repair
Right Lumpectomy
D&C
Cataracts
R ACW Port
Hx of Right PCN
Suspected dementia
Social History
Tobacco: Former Smoker
Alcohol: Occasional
Drug: None
Personal:
Living: Assisted Living
Family History
No chronic kidney disease
Allergies / Home Medications
Allergy/AdvReac Type Severity Reaction Status Date / Time
acetaminophen [From Percocet] Allergy 'mild Verified 05/07/23 00:31
sensation
of bug
bites'
ciprofloxacin [From Cipro] Allergy malaise; Verified 05/07/23 00:31
tolerates
levaquin
clarithromycin [From Biaxin] Allergy vision loss Verified 05/07/23 00:31
ondansetron [From Zofran] Allergy intense Verified 05/07/23 00:31
restless
leg
syndrome
oxycodone [From Percocet] Allergy 'mild Verified 05/07/23 00:31
sensation
of bug
bites'
sulfamethoxazole Allergy Rash Verified 05/07/23 00:31
[From Bactrim]
trimethoprim [From Bactrim] Allergy Rash Verified 05/07/23 00:31
Medication Instructions Recorded Confirmed Type
levothyroxine 100 mcg tablet 100 mcg PO DAILY AT 0700 Thyroid 06/28/19 05/07/23 History
atorvastatin 10 mg tablet 10 mg PO QPM High cholesterol 08/04/19 05/07/23 History
mirabegron 50 mg tablet,extended 50 mg PO HS Urinary Issue 11/09/22 05/07/23 History
release 24 hr (Myrbetriq)
sertraline 25 mg tablet (Zoloft) 25 mg PO QPM Depression 11/09/22 05/07/23 History
estradiol 0.025 mg/24 hr weekly 1 patch topical SA@07 Hormonal 12/15/22 05/07/23 History
transdermal patch Agent
Bifidobacterium infantis 4 mg 4 mg PO DAILY Supplement 05/07/23 05/07/23 History
capsule (Align)
acetaminophen 325 mg capsule 650 mg PO Q8HPRN PRN pain 05/07/23 05/07/23 History
(Tylenol)
alpha lipoic acid 600 mg tablet 600 mg PO DAILY Supplement 05/07/23 05/07/23 History
alprazolam 0.25 mg tablet (Xanax) 0.25 mg PO QID Mental 05/07/23 05/07/23 History
Health/Anxiety
bismuth subsalicylate 262 mg/15 mL 262 mg PO BIDPRN PRN upset stomach 05/07/23 05/07/23 History
oral suspension (Pepto-Bismol)
cetirizine 10 mg tablet (Zyrtec) 10 mg PO DAILY PRN seasonal 05/07/23 05/07/23 History
allergies
coQ10 (ubiquinol) 200 mg capsule 200 mg PO DAILY Supplement 05/07/23 05/07/23 History
cranberry extract 200 mg capsule 200 mg PO DAILY Supplement 05/07/23 05/07/23 History
(Ellura)
cyanocobalamin (vitamin B-12) 2,500 mcg sublingual DAILY 05/07/23 05/07/23 History
2,500 mcg sublingual tablet Supplement
(Vitamin B-12)
dextromethorphan polistirex 30 5 ml PO Q6HPRN PRN cough 05/07/23 05/07/23 History
mg/5 mL oral susp ext.release 12hr
(Delsym 12 hour)
fluticasone propionate 50 1 spray intranasal BIDPRN PRN 05/07/23 05/07/23 History
mcg/actuation nasal rhinorrhea
spray,suspension
fluticasone propionate 50 1 spray intranasal DAILY Allergies 05/07/23 05/07/23 History
mcg/actuation nasal
spray,suspension
guaifenesin 600 mg tablet, 600 mg PO BIDPRN PRN cough 05/07/23 05/07/23 History
extended release 12 hr (Mucinex)
hyoscyamine sulfate 0.125 mg 0.25 mg PO QIDPRN PRN increased 05/07/23 05/07/23 History
sublingual tablet (Levsin/SL) secretions
losartan 50 mg tablet 50 mg PO DAILY Blood Pressure 05/07/23 05/07/23 History
melatonin 3 mg capsule 3 mg PO HS Sleep 05/07/23 05/07/23 History
melatonin 3 mg tablet 3 mg PO HS PRN sleep 05/07/23 05/07/23 History
methylcellulose (laxative) 500 mg 500 mg PO Q6HPRN PRN abdmoninal 05/07/23 05/07/23 History
tablet (Citrucel) pain
nifedipine 60 mg tablet,extended 60 mg PO QPM Blood Pressure 05/07/23 05/07/23 History
release 24 hr
nitrofurantoin macrocrystal 50 mg 50 mg PO DAILY Infection 05/07/23 05/07/23 History
capsule (Macrodantin)
oxymetazoline 0.05 % nasal spray 1 spray intranasal BIDPRN PRN 05/07/23 05/07/23 History
(Afrin (oxymetazoline)) congestions
pantoprazole 40 mg tablet,delayed 40 mg PO DAILY Gastrointestinal 05/07/23 05/07/23 History
release (Protonix) Issue
peg 400-propylene glycol 0.4 %-0.3 1 drp BOTH EYES TIDPRN PRN dry eyes 05/07/23 05/07/23 History
% eye drops (Systane (propylene
glycol))
phosphorated carbohydrate oral 15 ml PO 5/D PRN nausea 05/07/23 05/07/23 History
solution (Emetrol oral solution)
pramipexole 0.125 mg tablet 0.125 mg PO BID@1300,1800 05/07/23 05/07/23 History
Neurological Condition
prochlorperazine maleate 5 mg 5 mg PO TID nausea 05/07/23 05/07/23 History
tablet (Compazine)
progesterone micronized 100 mg 100 mg PO DAILY Hormonal Agent 05/07/23 05/07/23 History
capsule (Prometrium)
riboflavin (vitamin B2) 100 mg 100 mg PO DAILY Supplement 05/07/23 05/07/23 History
tablet (Vitamin B-2)
simethicone 125 mg chewable tablet 125 mg PO Q8HPRN PRN gas pains 05/07/23 05/07/23 History
(Gas-X Extra Strength)
Review of Systems
-
History Source: Patient
All other systems: Negative unless noted
Constitutional: Weight Loss and Fatigue
EENT: Sore Throat
Respiratory: No Symptoms
Cardiac: No Symptoms
Abdomen/GI: Other (Abdominal distention)
: No Symptoms
Musculoskeletal: Muscle Stiffness
Skin: No Symptoms
Neurological: Other (Some continued confusion)
Endocrine: No Symptoms
Hematologic/Lymphatic: No Symptoms
Physical Exam
Vital Signs
Vital Signs
Temp Pulse Resp BP Pulse Ox
98.1 F 97 16 157/77 97
05/11/23 11:38 05/11/23 11:38 05/11/23 11:38 05/11/23 11:38 05/11/23 11:38
Lab Results
Urine osmolarity 510 urine sodium 87
05/11/23 05:31
05/11/23 05:31
WBC 5.1 10^3/uL (4.8-10.8) 05/11/23 05:31
RBC 3.99 10^6/uL (4.20-5.40) L 05/11/23 05:31
Hgb 11.8 g/dL (12.0-16.0) L 05/11/23 05:31
Hct 34.3 % (37.0-47.0) L 05/11/23 05:31
Plt Count 235 10^3/uL (130-400) 05/11/23 05:31
Sodium 125 mmol/L (135-145) L 05/11/23 05:
Potassium 3.6 mmol/L (3.5-5.1) 05/11/23 05:31
Chloride 97 mmol/L (98-107) L 05/11/23 05:31
Carbon Dioxide 24 mmol/L (22-30) 05/11/23 05:31
BUN 8 mg/dl (7-17) 05/11/23 05:
Creatinine 0.5 mg/dL (0.6-1.0) L 05/11/23 05:31
eGFR > 60.00 05/11/23 05:31
Glucose 82 mg/dl (70-99) 05/11/23 05:31
Calcium 8.2 mg/dl (8.4-10.2) L 05/11/23 05:31
Albumin 3.0 g/dl (3.5-5.0) L 05/07/23 00:39
Physical Exam
General: Awake, Alert, No Distress, Nontoxic and Other (Some confusion noted not completely oriented to time)
HEENT: PERRL, EOMI, Conjunctivae Clear, Ear/Nose Intact, Hearing Normal, Oropharynx Clear/Moist, Neck Supple, Trachea Midline, No JVD and No Thyromegaly
Respiratory: Clear
Cardiac: S1/S2
Breast: Deferred by me
Abdomen: Soft, Nontender, Normal Bowel Sounds and No Hepatosplenomegaly
Rectal: Deferred by Provider
Musculoskeletal: No Clubbing, No Cyanosis and No Edema
Skin: No Rash
Neuro: Nonfocal/Grossly Intact and Strength (Moves all 4 limbs independently against resistance)
Hematologic/Lymphatic: No Cervical Lymphadenopathy, No Submandibular Lymphadenopathy and No Supraclavicular Lymphadenopathy
Psych: Mood/afflect pleasant and Other (Very tangential not completely oriented to time)
Assessment/Plan
-
Impression:
Acute on chronic euvolemic hyponatremia
Confusion/fevers on presentation
History of hypertension
History of metastatic cervical cancer
History of hypothyroidism
History of head trauma with small CATERING DRIVER bleed in April 052023
Diarrhea during admission
Restless leg syndrome
Plan:
Acute on chronic euvolemic hyponatremia
-Maintain fluid restriction
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
-Etiology likely related to chronic SSRI administration possibly due to recurrence of underlying cervical malignancy
-Case discussed in detail with both daughter and primary service
-Patient will likely be needed to be discharged on fluid restriction and possibly Lasix
Data Reviewed
-
Radiology: Image Personally Visualized and interpreted (Chest x-ray reviewed on admission no evidence of congestive heart failure or pneumonic process I did note a Mediport along the anterior chest with)
Labs: Labs Reviewed by me (Old labs reviewed from date 12/17/2022 sodium 131)
Old Records: Reviewed
[2023-05-11] MEDS: SAMSCA 7.5 MG PO (16:17)
[2023-05-11] MEDS: PROCARDIA XL (EXTENDED RELEASE) 60 MG PO (17:14)
[2023-05-11] MEDS: TYLENOL 650 MG PO (20:03)
[2023-05-11] MEDS: ZOLOFT 25 MG PO (21:18)
[2023-05-12 02:47] VITALS: BP 150/76
[2023-05-12 06:02] LABS: Blood Urea Nitrogen 14 mg/dl (7-17); Calcium 8.8 mg/dl (8.4-10.2); Carbon Dioxide 24 mmol/L (22-30); Chloride 99 mmol/L (98-107); Estimated Creatinine Clearance 54 ml/min; Glucose 101 mg/dl (70-99); Potassium 3.6 mmol/L (3.5-5.1); Sodium 131 mmol/L (135-145); eGFR > 60.00
[2023-05-12] MEDS: SYNTHROID 88 MCG PO (06:14)
[2023-05-12 06:25] LABS: % Basophils 0.2 % (0-2); % Eosinophils 3.3 % (0-6); % Immature Granulocytes 0.7 % (0-0.5); % Lymphocytes 12.1 % (20.5-51.1); % Neutrophils 72.7 % (42.2-75.2); Absolute Eosinophils 0.2 10^3/uL (0-0.7); Absolute Lymphocytes 0.6 10^3/uL (1.2-3.4); Absolute Monocytes 0.5 10^3/uL (0.1-0.6); Absolute Neutrophils 3.3 10^3/uL (1.4-6.5); Hematocrit 34.9 % (37.0-47.0); Hemoglobin 11.9 g/dL (12.0-16.0); Mean Corp Hgb Conc. 34.1 g/dL (33.0-37.0); Mean Corpuscular Hgb 29.3 pg (27.0-31.0); Mean Platelet Volume 8.8 fL (7.4-10.4); Nucleated Red Blood Cells % 0 %; Platelet Count 250 10^3/uL (130-400); Red Blood Cell Count 4.06 10^6/uL (4.20-5.40); Red Cell Dist. Width 14.6 % (11.5-14.5); White Blood Cell Count 4.5 10^3/uL (4.8-10.8)
[2023-05-12 07:00] VITALS: BP 143/63
[2023-05-12] MEDS: COZAAR 50 MG PO (07:16)
[2023-05-12] MEDS: LIPITOR 10 MG PO (07:16)
[2023-05-12] MEDS: PLAVIX 75 MG PO (07:16)
[2023-05-12] MEDS: PROTONIX 40 MG PO (07:16)
--- NOTE | 2023-05-12 12:03 | W.PN.HOSP.TC ---
Today's Communication/Plan
-
Monitor vital signs see plan
Sodium slowly improving
PT/OT
Discharge planning
Assessment / Plan
Assessment / Plan
General: Other (87y F in no acute distress.)
HEENT: no icterus
Respiratory: Other (Few coarse breath sounds appreciated on the R.� Generally poor inspiratory effort.� No rales / wheezes.)
Cardiac: S1/S2 and Regular Rhythm; No Murmur
GI: Soft, Non Tender, Non Distended and Normal Bowel Sounds
Musculoskeletal: No Clubbing, No Cyanosis and No Edema
Suspect toxic metabolic encephalopathy which is now improved
�- Suspect that change in mentation is multifactorial, but likely in large part due to recently started ATC alprazolam.
�- Hold sedating medications and follow for improvement in mental status.
�- Treat other concurrent issues as noted below.
R Pneumonia
Acute Hypoxemic Respiratory Insufficiency on admission; no clear cause; now appears on RA
�- Patient with recent sore throat, cough and fever at home today to 101.7. her has been normal temp
CXR does not appear PNA
�- DC abx and monitor
bcx NGTD
�- Supportive care including O2, nebs, etc.
�- COVID / Influenza negative
Acute diarrhea likely related to abx
cdiff neg; no WBC in stool
hypokalemia
Replete
Acute on Chronic Hyponatremia
�- Persistent hyponatremia
Fluid restriction
nephrology following; s/p samsca 05/11; Na now 131
Recent SDH
Post-Concussion Syndrome
�- Fall on 04/05/23 with resultant L frontal SDH - improved / resolved without intervention.
�- Family reports significant change in mentation, functional status, mood, etc since that fall.
�- Follow for any new / worsening symptom.
�- Consider repeat CT if any acute changes.
�- PT / OT evaluations rec SNF. Spoke with daughter 05/08. Patient is currently at assisted living. Daughter wants to see how patient does today and depending on that she will decide on disposition
Restless Leg Syndrome
Akathisia
�- Recent worsening of RLS symptoms following Compazine administration.
�- Then started on standing doses of alprazolam as noted above.
�- Hold further Compazine or alprazolam.
�- Continue usual pramipexole for RLS symptoms.
�- Follow for any new / worsening symptoms.
Suspected depressive mood
no SI
psych eval outpatient
ASCVD
�- History of carotid disease and PAD s/p stenting.
�- No chest pain, etc at present.
�- Follow for any new complaints.
restart plavix when able given recent SDH; daughter supposed to provide us paperwork given by her neurologist. ok'ed by outpatient neurologist to start back plavix.
Hypothyroidism
�- Continue T4 supplementation.
�- dec Synthroid to 88mcg; repeat levels in 4 weeks outpatient
underweight
Metastatic Cervical Cancer
�- s/p chemo, XRT and brachytherapy.
�- Continue current hormonal medication regimen.
DVT Prophylaxis:� SCDs given recent SDH
Code Status:� DNR
Spoke with daughter 05/08. Patient is currently at assisted living. Daughter wants to see how patient does today and depending on that she will decide on disposition
05/10,05/11: updated daughter
Anticipated Discharge: Within 24 hours
Subjective/Interval History
-
Date of Service: May 12, 2023
denies pain
Objective Data
-
Labs:
Laboratory Results
05/12/23
05:05
WBC 4.5 L
Hgb 11.9 L
Hct 34.9 L
Plt Count 250
Sodium 131 L
Potassium 3.6
Chloride 99
Carbon Dioxide 24
BUN 14
Creatinine 0.6
Glucose 101 H
Calcium 8.8
Vital Signs:
Vital Signs
Temp Pulse Resp BP Pulse Ox
97.7 F 52 17 143/63 96
05/12/23 07:00 05/12/23 07:16 05/12/23 07:00 05/12/23 07:16 05/12/23 07:00
I&O
05/11/23 05/12/23 05/13/23
06:59 06:59 06:59
Intake Total 600 / 600 960 / 960
Balance 600 / 600 960 / 960
[2023-05-12] MEDS: MIRAPEX 0.125 MG PO (12:38)
--- NOTE | 2023-05-12 13:27 | CM ---
Reviewed chart, placed a call to [facility] in admissions at [facility] who confirmed bed for patient on Monday. # For report [phone] ask for nursing supervisor [employer] fax# [phone]. No auth is needed for transfer.
Plan: Case management will continue to follow and assist with discharge [facility].
--- NOTE | 2023-05-12 14:04 | W.PN.NEPH.PH ---
Today's Communication / Plan
-
- no further samsca
- d/c fluid restriction and lasix 10mg daily
- neph to sign off
Assessment/Plan
-
Impression:
Acute on chronic euvolemic hyponatremia
Confusion/fevers on presentation
History of hypertension
History of metastatic cervical cancer
History of hypothyroidism
History of head trauma with small SURGICAL AIDE bleed in April 052023
Diarrhea during admission
Restless leg syndrome
Plan:
Acute on chronic euvolemic hyponatremia
-Maintain fluid restriction
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
-Na improved to 131 this AM
-Etiology likely related to chronic SSRI administration possibly due to recurrence of underlying cervical malignancy
-Case discussed in detail with both daughter and primary service
-Patient will need to be discharged on fluid restriction and lasix 10mg daily
Nephrology to sign off. Please call back with any further questions.
-
-
Date of Service: May 12, 2023
CC / HPI / ROS
-
Chief Complaint:
hyponatremia
History of Present Illness:
Na improved to 131 with samsca
likely fluid restriction and lasix 10mg for homegoing
Review of Systems:
denies complaints, feels well this AM
Labs
-
Labs:
WBC 4.5 10^3/uL (4.8-10.8) L 05/12/23 05:05
RBC 4.06 10^6/uL (4.20-5.40) L 05/12/23 05:05
Hgb 11.9 g/dL (12.0-16.0) L 05/12/23 05:05
Hct 34.9 % (37.0-47.0) L 05/12/23 05:05
Plt Count 250 10^3/uL (130-400) 05/12/23 05:05
Sodium 131 mmol/L (135-145) L 05/12/23 05:05
Potassium 3.6 mmol/L (3.5-5.1) 05/12/23 05:05
Chloride 99 mmol/L (98-107) 05/12/23 05:05
Carbon Dioxide 24 mmol/L (22-30) 05/12/23 05:05
BUN 14 mg/dl (7-17) 05/12/23 05:05
Creatinine 0.6 mg/dL (0.6-1.0) 05/12/23 05:05
eGFR > 60.00 05/12/23 05:05
Glucose 101 mg/dl (70-99) H 05/12/23 05:05
Calcium 8.8 mg/dl (8.4-10.2) 05/12/23 05:05
Albumin 3.0 g/dl (3.5-5.0) L 05/07/23 00:39
Physical Exam
-
Vital Signs:
Vital Signs
Temp Pulse Resp BP Pulse Ox
97.7 F 52 17 143/63 96
05/12/23 07:00 05/12/23 07:16 05/12/23 07:00 05/12/23 07:16 05/12/23 07:00
Cardiovascular:: Regular rate and rhythm
Respiratory:: Bilateral: Coarse
Lung Excursion:: Normal
Abdomen:: Distended, Nontender and Soft
Bowel Sounds:: Normal
Extremity Edema:: None: Bilateral:
Castaneda Catheter: No
[2023-05-12 15:00] VITALS: BP 119/61
[2023-05-12] MEDS: PROCARDIA XL (EXTENDED RELEASE) 60 MG PO (17:14)
[2023-05-12] MEDS: ZOLOFT 25 MG PO (21:06)
[2023-05-12 23:05] VITALS: BP 115/55
[2023-05-13 06:00] VITALS: BMI 18.8
[2023-05-13] MEDS: SYNTHROID 88 MCG PO (06:07)
[2023-05-13 07:00] VITALS: BP 136/62
[2023-05-13] MEDS: PROTONIX 40 MG PO (07:18)
[2023-05-13] MEDS: PLAVIX 75 MG PO (07:18)
[2023-05-13] MEDS: COZAAR 50 MG PO (07:18)
[2023-05-13] MEDS: LIPITOR 10 MG PO (07:18)
[2023-05-13 09:58] LABS: % Basophils 0.6 % (0-2); % Eosinophils 1.6 % (0-6); % Immature Granulocytes 0.8 % (0-0.5); % Lymphocytes 10.7 % (20.5-51.1); % Monocytes 8.1 % (1.7-9.3); % Neutrophils 78.2 % (42.2-75.2); Absolute Eosinophils 0.1 10^3/uL (0-0.7); Absolute Immature Granulocytes 0.1 10^3/uL (0-0.05); Absolute Lymphocytes 0.7 10^3/uL (1.2-3.4); Absolute Monocytes 0.5 10^3/uL (0.1-0.6); Absolute Neutrophils 4.8 10^3/uL (1.4-6.5); Hematocrit 33.1 % (37.0-47.0); Hemoglobin 11.2 g/dL (12.0-16.0); Mean Corp Hgb Conc. 33.8 g/dL (33.0-37.0); Mean Corpuscular Volume 85.8 fL (81.0-99.0); Mean Platelet Volume 8.8 fL (7.4-10.4); Nucleated Red Blood Cells % 0 %; Platelet Count 255 10^3/uL (130-400); Red Blood Cell Count 3.86 10^6/uL (4.20-5.40); Red Cell Dist. Width 14.7 % (11.5-14.5); White Blood Cell Count 6.2 10^3/uL (4.8-10.8)
[2023-05-13 10:24] LABS: Blood Urea Nitrogen 13 mg/dl (7-17); Calcium 8.2 mg/dl (8.4-10.2); Carbon Dioxide 24 mmol/L (22-30); Chloride 102 mmol/L (98-107); Estimated Creatinine Clearance 54 ml/min; Glucose 83 mg/dl (70-99); Potassium 3.7 mmol/L (3.5-5.1); Sodium 130 mmol/L (135-145); eGFR > 60.00
--- NOTE | 2023-05-13 10:36 | W.PN.HOSP.TC ---
Today's Communication/Plan
-
Monitor vital signs see plan
Monitor sodium
Per correctional casework specialist bed at [facility] on Monday
Continue with fluid restriction, changed to 48 ounces
Assessment / Plan
Assessment / Plan
General: Other (87y F in no acute distress.)
HEENT: no icterus
Respiratory: Other (Few coarse breath sounds appreciated on the R.� Generally poor inspiratory effort.� No rales / wheezes.)
Cardiac: S1/S2 and Regular Rhythm; No Murmur
GI: Soft, Non Tender, Non Distended and Normal Bowel Sounds
Musculoskeletal: No Clubbing, No Cyanosis and No Edema
Suspect toxic metabolic encephalopathy which is now improved
�- Suspect that change in mentation is multifactorial, but likely in large part due to recently started ATC alprazolam.
�- Hold sedating medications and follow for improvement in mental status.
�- Treat other concurrent issues as noted below.
R Pneumonia
Acute Hypoxemic Respiratory Insufficiency on admission; no clear cause; now appears on RA
�- Patient with recent sore throat, cough and fever at home today to 101.7. her has been normal temp
CXR does not appear PNA
�- DC abx and monitor
bcx NGTD
�- Supportive care including O2, nebs, etc.
�- COVID / Influenza negative
Acute diarrhea likely related to abx
cdiff neg; no WBC in stool
hypokalemia
Replete
Acute on Chronic Hyponatremia
�- Persistent hyponatremia
Fluid restriction to 48ounces
nephrology following; s/p samsca 05/11; Na now 130
cannot do lasix or bumex due to sulfa allergy
Recent SDH
Post-Concussion Syndrome
�- Fall on 04/05/23 with resultant L frontal SDH - improved / resolved without intervention.
�- Family reports significant change in mentation, functional status, mood, etc since that fall.
�- Follow for any new / worsening symptom.
�- Consider repeat CT if any acute changes.
�- PT / OT evaluations rec SNF. pending SNF
Restless Leg Syndrome
Akathisia
�- Recent worsening of RLS symptoms following Compazine administration.
�- Then started on standing doses of alprazolam as noted above.
�- Hold further Compazine or alprazolam.
�- Continue usual pramipexole for RLS symptoms.
�- Follow for any new / worsening symptoms.
Suspected depressive mood
no SI
psych eval outpatient
ASCVD
�- History of carotid disease and PAD s/p stenting.
�- No chest pain, etc at present.
�- Follow for any new complaints.
restart plavix when able given recent SDH; daughter supposed to provide us paperwork given by her neurologist. ok'ed by outpatient neurologist to start back plavix.
Hypothyroidism
�- Continue T4 supplementation.
�- dec Synthroid to 88mcg; repeat levels in 4 weeks outpatient
underweight
Metastatic Cervical Cancer
�- s/p chemo, XRT and brachytherapy.
�- Continue current hormonal medication regimen.
DVT Prophylaxis:� SCDs given recent SDH
Code Status:� DNR
PT/OT : SNF
05/10,05/11: updated daughter
Anticipated Discharge: Within 24 hours
Subjective/Interval History
-
Date of Service: May 13, 2023
denies pain
Objective Data
-
Labs:
Laboratory Results
05/13/23
08:39
WBC 6.2
Hgb 11.2 L
Hct 33.1 L
Plt Count 255
Sodium 130 L
Potassium 3.7
Chloride 102
Carbon Dioxide 24
BUN 13
Creatinine 0.6
Glucose 83
Calcium 8.2 L
Vital Signs:
Vital Signs
Temp Pulse Resp BP Pulse Ox
97.5 F 70 18 136/62 98
05/13/23 07:00 05/13/23 07:18 05/13/23 07:00 05/13/23 07:18 05/13/23 07:00
I&O
05/12/23 05/13/23 05/14/23
06:59 06:59 06:59
Intake Total 960 / 960 990 / 990
Balance 960 / 960 990 / 990
[2023-05-13] MEDS: TYLENOL 650 MG PO (11:08)
[2023-05-13 11:13] VITALS: BP 122/76; BP 146/71; BP 167/69; PULSE 102; PULSE 69; PULSE 80
[2023-05-13] MEDS: MIRAPEX 0.125 MG PO (13:00)
[2023-05-13 15:00] VITALS: BP 145/61
[2023-05-13 15:42] VITALS: BP 150/63; PULSE 72; O2SAT 98
--- NOTE | 2023-05-13 15:53 | CM ---
Patient from [facility] assisted living.
Spoke with daughter Nelia Cardoza/Carmela; she agrees with d/c tomorrow to [facility]. IMM completed and copy sent to her email at [email or web address].
Spoke with Tatiana, Flight Communications Operator [facility]; they are able to accept the patient tomorrow to 4th floor report. The ph for report [phone] ask for nursing gas line installer supervisor, fax# [phone].
Plan [facility] tomorrow.
[2023-05-13] MEDS: PROCARDIA XL (EXTENDED RELEASE) 60 MG PO (16:59)
[2023-05-13] MEDS: ZOLOFT 25 MG PO (21:05)
[2023-05-13 23:24] VITALS: BP 118/67; BP 127/67; BP 138/63; PULSE 60; PULSE 65; PULSE 72
[2023-05-14 05:54] VITALS: BMI 18.9
[2023-05-14] MEDS: SYNTHROID 88 MCG PO (05:54)
[2023-05-14 06:47] LABS: % Basophils 0.5 % (0-2); % Eosinophils 1.9 % (0-6); % Immature Granulocytes 1.1 % (0-0.5); % Lymphocytes 8.9 % (20.5-51.1); % Monocytes 8.6 % (1.7-9.3); Absolute Eosinophils 0.1 10^3/uL (0-0.7); Absolute Immature Granulocytes 0.1 10^3/uL (0-0.05); Absolute Lymphocytes 0.5 10^3/uL (1.2-3.4); Absolute Monocytes 0.5 10^3/uL (0.1-0.6); Absolute Neutrophils 4.5 10^3/uL (1.4-6.5); Hematocrit 31.2 % (37.0-47.0); Hemoglobin 10.7 g/dL (12.0-16.0); Mean Corp Hgb Conc. 34.3 g/dL (33.0-37.0); Mean Corpuscular Hgb 29.4 pg (27.0-31.0); Mean Corpuscular Volume 85.7 fL (81.0-99.0); Mean Platelet Volume 8.7 fL (7.4-10.4); Nucleated Red Blood Cells % 0 %; Platelet Count 249 10^3/uL (130-400); Red Blood Cell Count 3.64 10^6/uL (4.20-5.40); Red Cell Dist. Width 14.6 % (11.5-14.5); White Blood Cell Count 5.7 10^3/uL (4.8-10.8)
[2023-05-14 07:44] VITALS: BP 153/64
[2023-05-14] MEDS: COZAAR 50 MG PO (08:08)
[2023-05-14] MEDS: LIPITOR 10 MG PO (08:08)
[2023-05-14] MEDS: PLAVIX 75 MG PO (08:08)
[2023-05-14] MEDS: PROTONIX 40 MG PO (08:08)
--- NOTE | 2023-05-14 11:25 | W.PN.HOSP.TC ---
Today's Communication/Plan
-
Monitor vital signs
see plan
Discharge today if as placement
Monitor sodium outpatient
Continue with fluid restriction
Time of discharge 36 minutes
Assessment / Plan
Assessment / Plan
General: Other (87y F in no acute distress.)
HEENT: no icterus
Respiratory: Other (Few coarse breath sounds appreciated on the R.� Generally poor inspiratory effort.� No rales / wheezes.)
Cardiac: S1/S2 and Regular Rhythm; No Murmur
GI: Soft, Non Tender, Non Distended and Normal Bowel Sounds
Musculoskeletal: No Clubbing, No Cyanosis and No Edema
Suspect toxic metabolic encephalopathy which is now improved
�- Suspect that change in mentation is multifactorial, but likely in large part due to recently started ATC alprazolam.
�- Hold sedating medications and follow for improvement in mental status. will keep on holding sedating meds
mental status improved
Acute Hypoxemic Respiratory Insufficiency on admission; no clear cause; now appears on RA
�- Patient with recent sore throat, cough and fever at home today to 101.7. her has been normal temp
CXR does not appear PNA
�- DC abx and monitor
bcx NGTD
�- Supportive care including O2, nebs, etc.
�- COVID / Influenza negative
Acute diarrhea likely related to abx
resolved
cdiff neg; no WBC in stool
Acute on Chronic Hyponatremia
�- Persistent hyponatremia
Fluid restriction to 48ounces
nephrology following; s/p samsca 05/11; Na now 130
cannot do lasix or bumex due to sulfa allergy
hypokalemia
resolved
Recent SDH
Post-Concussion Syndrome
�- Fall on 04/05/23 with resultant L frontal SDH - improved / resolved without intervention.
�- Family reports significant change in mentation, functional status, mood, etc since that fall.
�- Follow for any new / worsening symptom.
�- Consider repeat CT if any acute changes.
�- PT / OT evaluations rec SNF. pending SNF
Restless Leg Syndrome
Akathisia
�- Recent worsening of RLS symptoms following Compazine administration.
�- Then started on standing doses of alprazolam as noted above.
�- Hold further Compazine or alprazolam.
�- Continue usual pramipexole for RLS symptoms.
�- Follow for any new / worsening symptoms.
Suspected depressive mood
no SI
psych eval outpatient
ASCVD
�- History of carotid disease and PAD s/p stenting.
�- No chest pain, etc at present.
�- Follow for any new complaints.
restart plavix when able given recent SDH; daughter supposed to provide us paperwork given by her neurologist. ok'ed by outpatient neurologist to start back plavix. plavix restarted
Hypothyroidism
�- Continue T4 supplementation.
�- dec Synthroid to 88mcg; repeat levels in 4 weeks outpatient
underweight
Metastatic Cervical Cancer
�- s/p chemo, XRT and brachytherapy.
�- Continue current hormonal medication regimen.
DVT Prophylaxis:� SCDs given recent SDH
Code Status:� DNR
PT/OT : SNF
05/10,05/11: updated daughter
Anticipated Discharge: Today
Subjective/Interval History
-
Date of Service: May 14, 2023
denies pain
Objective Data
-
Labs:
Laboratory Results
05/14/23
06:31
WBC 5.7
Hgb 10.7 L
Hct 31.2 L
Plt Count 249
Vital Signs:
Vital Signs
Temp Pulse Resp BP Pulse Ox
98.7 F 74 17 153/64 95
05/14/23 07:44 05/14/23 07:44 05/14/23 07:44 05/14/23 07:44 05/14/23 07:44
I&O
05/13/23 05/14/23 05/15/23
06:59 06:59 06:59
Intake Total 990 / 990 450 / 450
Balance 990 / 990 450 / 450
--- NOTE | 2023-05-14 11:30 | W.DCSUMMARY ---
Discharge Summary
Discharge Data
Date of Admission: 05/07/23
Date of Discharge: 05/14/23
-
Pending Results: No
Hospital Course
87-year-old female with past medical history of chronic hyponatremia, subdural hematoma, restless leg syndrome, ectasia, depressive mood, carotid disease and PAD, hypothyroidism, metastatic cervical cancer came to the hospital with ambulatory
dysfunction and toxic metabolic encephalopathy which was likely thought was multifactorial secondary to multiple sedating medications. Patient alprazolam was then stopped. Patient also initially had acute hypoxic respiratory insufficiency for
which no clear cause was noted. Chest x-ray was negative for pneumonia. Initially patient was started empiric antibiotic which was later discontinued due to diarrhea. C. difficile was negative. Patient also had acute on chronic hyponatremia for
which she was seen by nephrology and was given Samsca along with fluid restriction. Given her allergy to sulfa, Lasix or Bumex was not given. Patient outpatient neurologist also recommended her Plavix to be restarted since now her subdural
hematoma is okay. Patient was also evaluated by physical therapy who recommended SNF. Once patient had a bed at SNF, she was then discharged with instructions to follow-up with all her physicians outpatient.
Discharge Plan
-
Patient Disposition: Long Term/SNF
Discharge Diagnosis/Procedures: Suspect toxic metabolic encephalopathy
Acute on chronic anemia
Ambulatory dysfunction
Condition: Fair
Diet: Restrict fluids to 48 oz
Activity: With assistance and As tolerated
Driving Restrictions: Not until seen by your Dr
Bathing Restrictions: None
Blood Work: Will recheck TSH with reflex to free T4 in 4 weeks
Referrals:
Jarret Lyles MD [Family Provider] - in less than 1 week
Con Antoine MD [Active] -
Prescriptions:
New
levothyroxine 88 mcg Tablet
88 mcg PO DAILY@0700 Qty: 1 0RF
clopidogrel 75 mg Tablet
75 mg PO DAILY Qty: 0 0RF
Continued
levothyroxine 100 MCG tablet
100 mcg PO DAILY AT 0700
atorvastatin 10 MG tablet
10 mg PO QPM
sertraline [Zoloft] 25 mg Tablet
25 mg PO QPM
Myrbetriq 50 mg Tablet Extended Release 24 Hr
50 mg PO HS
estradiol 0.025 mg/24 hr patch weekly
1 patch topical SA@07
losartan 50 mg Tablet
50 mg PO DAILY
nitrofurantoin macrocrystal [Macrodantin] 50 mg Capsule
50 mg PO DAILY
cyanocobalamin (vitamin B-12) [Vitamin B-12] 2,500 mcg Tablet, Sublingual
2,500 mcg SUBLINGUAL DAILY
cetirizine [Zyrtec] 10 mg Tablet
10 mg PO DAILY PRN (Reason: seasonal allergies)
riboflavin (vitamin B2) [Vitamin B-2] 100 mg Tablet
100 mg PO DAILY
Emetrol Solution
15 ml PO 5/D PRN (Reason: nausea)
nifedipine 60 mg Tablet Extended Release 24hr
60 mg PO QPM
pantoprazole [Protonix] 40 mg Tablet,Delayed Release (Dr/Ec)
40 mg PO DAILY
Citrucel 500 mg Tablet
500 mg PO Q6HPRN PRN (Reason: abdmoninal pain)
hyoscyamine sulfate [Levsin/SL] 0.125 mg Tablet, Sublingual
0.25 mg PO QIDPRN PRN (Reason: increased secretions)
pramipexole 0.125 mg Tablet
0.125 mg PO BID@1300,1800
fluticasone propionate 50 mcg/actuation Midnight,Suspension
1 spray INTRANASAL BIDPRN PRN (Reason: rhinorrhea)
fluticasone propionate 50 mcg/actuation Midnight,Suspension
1 spray INTRANASAL DAILY
progesterone micronized [Prometrium] 100 mg Capsule
100 mg PO DAILY
Systane (propylene glycol) 0.4-0.3 % Drops
1 drp BOTH EYES TIDPRN PRN (Reason: dry eyes)
oxymetazoline [Afrin (oxymetazoline)] 0.05 % Midnight,Non-Aerosol
1 spray INTRANASAL BIDPRN PRN (Reason: congestions)
acetaminophen [Tylenol] 325 mg Capsule
650 mg PO Q8HPRN MDD mild pain PRN (Reason: pain)
Align 4 mg Capsule
4 mg PO DAILY
cranberry extract [Ellura] 200 mg Capsule
200 mg PO DAILY
melatonin 3 mg Capsule
3 mg PO HS
alpha lipoic acid 600 mg Tablet
600 mg PO DAILY
dextromethorphan polistirex [Delsym 12 hour] 30 mg/5 mL Suspension,Extended Rel 12 Hr
5 ml PO Q6HPRN PRN (Reason: cough)
melatonin 3 mg Tablet
3 mg PO HS PRN (Reason: sleep)
bismuth subsalicylate [Pepto-Bismol] 262 mg/15 mL Suspension
262 mg PO BIDPRN PRN (Reason: upset stomach)
simethicone [Gas-X Extra Strength] 125 mg Tablet,Chewable
125 mg PO Q8HPRN PRN (Reason: gas pains)
coQ10 (ubiquinol) 200 mg Capsule
200 mg PO DAILY
guaifenesin [Mucinex] 600 mg Tablet Extended Release 12hr
600 mg PO BIDPRN PRN (Reason: cough)
Discontinued
alprazolam [Xanax] 0.25 mg Tablet
0.25 mg PO QID
prochlorperazine maleate [Compazine] 5 mg Tablet
5 mg PO TID
Discharge Orders:
Discharge Patient (As Directed); Ordered 05/14/23
Ordered By: Shyam Bullock
Discharge Date and Time
Discharge Date/Time: 05/14/23 14:38
--- NOTE | 2023-05-14 11:40 | CM ---
Addendum entered by Trista Ogden 05/14/23 12:27:
Patient's daughter Carmela to clam picker patient at 2pm, admissions at [facility] are aware.
Original Note:
manager process spoke with Willam at [facility] and they have accepted patient at [facility] skilled today.
[facility]
Report [phone]
== END 2023-05-14 14:38 | DRG 193 ==
LOC: 3 WEST ACU 04:54
PROVIDERS: Hospitalist; ADMITTING PHYSICIAN Hospitalist; ATTENDING PHYSICIAN Internal Medicine; CONSULT PHYSICIAN Specialist; EMERGENCY PHYSICIAN Student in an Organized Health Care Education/Training Program; FAMILY PHYSICIAN Internal Medicine Geriatric Medicine
DX: J18.9 Pneumonia, unspecified organism (principal); G92.8 Other toxic encephalopathy; E22.2 Syndrome of inappropriate secretion of antidiuretic hormone; Z68.1 Body mass index [BMI] 19.9 or less, adult; Z11.52 Encounter for screening for COVID-19; Z66 Do not resuscitate; Z87.891 Personal history of nicotine dependence; G25.71 Drug induced akathisia; I25.10 Atherosclerotic heart disease of native coronary artery without angina pectoris; E03.9 Hypothyroidism, unspecified; C53.9 Malignant neoplasm of cervix uteri, unspecified; Z92.21 Personal history of antineoplastic chemotherapy; R09.02 Hypoxemia; R06.89 Other abnormalities of breathing; F07.81 Postconcussional syndrome; R63.6 Underweight; E87.6 Hypokalemia; R26.2 Difficulty in walking, not elsewhere classified
CPT/HCPCS: 71046; 80048; 80053; 81003; 81015; 82533; 83605; 83930; 83935; 84300; 84439; 84443; 85025; 85027; 87040; 87045; 87046; 87070; 87077; 87324; 87427; 87449; 87502; 87811; 87880; 89055; 93005; 96360; 97116; 97163; 97167; 97530; 99285; J2997

== ENCOUNTER → 2023-05-16 09:43 | Outpatient (REF) | payer MEDICARE, OTHER, SELFPAY ==
[2023-05-16 11:31] LABS: % Basophils 0.5 % (0-2); % Eosinophils 2.8 % (0-6); % Immature Granulocytes 0.9 % (0-0.5); % Lymphocytes 8.7 % (20.5-51.1); % Monocytes 9.4 % (1.7-9.3); % Neutrophils 77.7 % (42.2-75.2); Absolute Eosinophils 0.2 10^3/uL (0-0.7); Absolute Immature Granulocytes 0.1 10^3/uL (0-0.05); Absolute Lymphocytes 0.5 10^3/uL (1.2-3.4); Absolute Monocytes 0.5 10^3/uL (0.1-0.6); Absolute Neutrophils 4.4 10^3/uL (1.4-6.5); Hematocrit 30.5 % (37.0-47.0); Hemoglobin 10.2 g/dL (12.0-16.0); Mean Corp Hgb Conc. 33.4 g/dL (33.0-37.0); Mean Corpuscular Hgb 29.7 pg (27.0-31.0); Mean Corpuscular Volume 88.7 fL (81.0-99.0); Mean Platelet Volume 9.2 fL (7.4-10.4); Nucleated Red Blood Cells % 0 %; Platelet Count 297 10^3/uL (130-400); Red Blood Cell Count 3.44 10^6/uL (4.20-5.40); Red Cell Dist. Width 14.6 % (11.5-14.5); White Blood Cell Count 5.7 10^3/uL (4.8-10.8)
[2023-05-16 11:50] LABS: Blood Urea Nitrogen 8 mg/dl (7-17); Calcium 8.5 mg/dl (8.4-10.2); Carbon Dioxide 23 mmol/L (22-30); Chloride 101 mmol/L (98-107); Glucose 84 mg/dl (70-99); Potassium 4.1 mmol/L (3.5-5.1); Sodium 127 mmol/L (135-145); eGFR > 60.00
== END ==
LOC: OLABP 09:43
PROVIDERS: ATTENDING PHYSICIAN Family Medicine
DX: F32.9 Major depressive disorder, single episode, unspecified (principal); I25.10 Atherosclerotic heart disease of native coronary artery without angina pectoris; E03.9 Hypothyroidism, unspecified; C79.9 Secondary malignant neoplasm of unspecified site; J18.9 Pneumonia, unspecified organism; M62.81 Muscle weakness (generalized); E87.6 Hypokalemia; E87.1 Hypo-osmolality and hyponatremia; G25.81 Restless legs syndrome
CPT/HCPCS: 36415; 80048; 85025

== ENCOUNTER → 2023-05-18 15:00 | Outpatient (REF) | payer MEDICARE, OTHER, SELFPAY ==
[2023-05-18 15:21] LABS: Blood Urea Nitrogen 9 mg/dl (7-17); Calcium 8.9 mg/dl (8.4-10.2); Carbon Dioxide 27 mmol/L (22-30); Chloride 95 mmol/L (98-107); Glucose 97 mg/dl (70-99); Potassium 4.2 mmol/L (3.5-5.1); Sodium 126 mmol/L (135-145); eGFR > 60.00
== END ==
LOC: OLABP 15:00
PROVIDERS: ATTENDING PHYSICIAN Family Medicine
DX: G92.8 Other toxic encephalopathy (principal); J18.9 Pneumonia, unspecified organism; E87.6 Hypokalemia; E87.1 Hypo-osmolality and hyponatremia; I25.10 Atherosclerotic heart disease of native coronary artery without angina pectoris; C79.9 Secondary malignant neoplasm of unspecified site
CPT/HCPCS: 36415; 80048

== ENCOUNTER → 2023-05-19 09:08 | Outpatient (REF) | payer OTHER, MEDICARE, SELFPAY ==
[2023-05-19 11:46] LABS: Blood Urea Nitrogen 21 mg/dl (7-17); Calcium 8.7 mg/dl (8.4-10.2); Carbon Dioxide 25 mmol/L (22-30); Chloride 97 mmol/L (98-107); Glucose 86 mg/dl (70-99); Potassium 4.1 mmol/L (3.5-5.1); Sodium 126 mmol/L (135-145); eGFR > 60.00
[2023-05-19 12:43] LABS: Urine Albumin Negative (Neg - Trace); Urine Bilirubin Negative (Negative); Urine Color Yellow; Urine Glucose Negative (Negative); Urine Ketone Negative (Negative); Urine Leukocyte Negative (Negative); Urine Nitrite Negative (Negative); Urine Occult Blood Negative (Negative); Urine Specific Gravity 1.005 (<1.030); Urine Urobilinogen Negative (Neg - 1+)
[2023-05-19 12:45] LABS: Urine Character Clear (Clear)
== END ==
LOC: OLABP 09:08
PROVIDERS: ATTENDING PHYSICIAN Family Medicine
DX: G92.8 Other toxic encephalopathy (principal); J18.9 Pneumonia, unspecified organism; E87.6 Hypokalemia; E87.1 Hypo-osmolality and hyponatremia; I25.10 Atherosclerotic heart disease of native coronary artery without angina pectoris; C79.9 Secondary malignant neoplasm of unspecified site; N39.0 Urinary tract infection, site not specified
CPT/HCPCS: 36415; 80048; 81003; 87086

== ENCOUNTER → 2023-05-22 12:12 | Outpatient (REF) | payer OTHER, MEDICARE, SELFPAY ==
[2023-05-22 13:38] LABS: Blood Urea Nitrogen 21 mg/dl (7-17); Calcium 8.4 mg/dl (8.4-10.2); Carbon Dioxide 24 mmol/L (22-30); Chloride 99 mmol/L (98-107); Glucose 78 mg/dl (70-99); Potassium 4.3 mmol/L (3.5-5.1); Sodium 127 mmol/L (135-145); eGFR > 60.00
== END ==
LOC: OLABP 12:12
PROVIDERS: ATTENDING PHYSICIAN Family Medicine
DX: G92.8 Other toxic encephalopathy (principal); J18.9 Pneumonia, unspecified organism; E78.6 Lipoprotein deficiency; E87.1 Hypo-osmolality and hyponatremia; I25.10 Atherosclerotic heart disease of native coronary artery without angina pectoris; C79.9 Secondary malignant neoplasm of unspecified site
CPT/HCPCS: 36415; 80048